=== PATIENT | male | born 1955 | race Caucasian/White ===

== ENCOUNTER 2019-10-30 16:40 | Inpatient (IN) | payer MEDICAID ==
[~2019-10-30] VITALS: Ht 175.3 cm; Wt 55.0 kg
[~2019-10-30 16:40] MED LIST: LIDOcaine 1% 30ml preserv. free vial ONE
[2019-10-30 19:42] LABS: BASOPHILS # (AUTO) 0.1 X10'3 (0-0.2); EOSINOPHILS % (AUTO) 0.1 % (0-6); HEMATOCRIT 33.7 % (42.0-52.0); HEMOGLOBIN 11.1 g/dl (14.0-17.9); LYMPHOCYTES # (AUTO) 1.1 X10'3 (1.1-4.8); LYMPHOCYTES % (AUTO) 12.7 % (21-51); MEAN CORPUSCULAR HEMOGLOBIN 27.4 PG (27.0-31.0); MEAN CORPUSCULAR HGB CONC 32.9 g/dL (33.0-36.5); MEAN CORPUSCULAR VOLUME 83.3 FL (78-98); MEAN PLATELET VOLUME 7.3 FL (7.4-10.4); MONOCYTES # (AUTO) 1.9 X10'3 (0-0.9); MONOCYTES % (AUTO) 21.9 % (2-12); NEUTROPHILS # (AUTO) 5.5 X10'3 (1.8-7.7); NEUTROPHILS % (AUTO) 64.3 % (42-75); PLATELET COUNT 465 X10'3 (140-440); RED BLOOD COUNT 4.05 X10'6 (4.70-6.10); RED CELL DISTRIBUTION WIDTH 17.4 % (11.5-14.5); WHITE BLOOD COUNT 8.6 X10'3 (4.5-11.0)
[2019-10-30 19:53] LABS: ALANINE AMINOTRANSFERASE 22 U/L (12-78); ALBUMIN 2.8 G/DL (3.4-5.0); ALBUMIN/GLOBULIN RATIO 0.5 (1.1-1.5); ALKALINE PHOSPHATASE 111 IU/L (46-116); ANION GAP 8 (8-16); ASPARTATE AMINO TRANSFERASE 28 U/L (10-37); BILIRUBIN,TOTAL 0.2 MG/DL (0.1-1.0); BLOOD UREA NITROGEN 21 MG/DL (7-18); BUN/CREATININE RATIO 20.4 (5.4-32.0); CALCIUM 9.5 MG/DL (8.5-10.1); CHLORIDE 98 MMOL/L (99-107); CREATININE 1.03 MG/DL (0.60-1.10); GLUCOSE 88 MG/DL (70-104); POTASSIUM 4.6 MMOL/L (3.5-5.1); SODIUM 136 MMOL/L (135-145); TOTAL CARBON DIOXIDE 29.9 MMOL/L (24-32); TOTAL PROTEIN 8.4 G/DL (6.4-8.2); eGFR 73 ML/MIN
[2019-10-30 20:44] LABS: TOTAL CELLS COUNTED 100
[2019-10-30 20:45] LABS: GIANT PLATELET FEW; PLATELET ESTIMATE INCREASED
[2019-10-30] MEDS ORDERED: normal saline 1000ML IV soln IVB ONE (21:15)
[2019-10-30 21:27] LABS: PARTIAL THROMBOPLASTIN TIME 29 SECONDS (22-32)
[2019-10-30 21:36] LABS: MAGNESIUM 1.7 MG/DL (1.5-2.4); TROPONIN I 0.13 NG/ML (0.0-0.05)
[2019-10-30] MEDS ORDERED: HYDROcodone/acetaminophen 10/325mg tab PO ONE (21:40)
[2019-10-30] MEDS ORDERED: CARV3.122 PO (21:51)
[2019-10-30] MEDS ORDERED: SPIR25TA PO (21:51)
[2019-10-30] MEDS ORDERED: FURO40TA4 PO (21:51)
[2019-10-30] MEDS ORDERED: LISI10TA PO (21:51)
[2019-10-30] MEDS ORDERED: magnesium Cl slow-release 64mg tablet PO PRN (22:40)
[2019-10-30] MEDS ORDERED: ondansetron/PF 4mg/2ml inj IV PRN (22:40)
[2019-10-30] MEDS ORDERED: magnesium hydroxide 30ml (MOM) UD suspension PO PRN (22:40)
[2019-10-30] MEDS ORDERED: potassium Cl 20 mEq SR tablet PO PRN ×2 (22:40)
[2019-10-30] MEDS ORDERED: mag hydrox/Alum hydrox/simeth 30ml oral suspension PO PRN (22:40)
[2019-10-31] VITALS (10 sets, daily range): BP systolic 91–153; BP diastolic 57–77
[2019-10-31] MEDS: morphine 2 MG/ML inj. syringe IV PRN ×3 (01:15→20:14)
--- NOTE | 2019-10-31 01:50 | NUR ---
Patient in room [facility] 350. I have received report from Bishnu JOHANSEN in the ER and had the opportunity to ask questions and assume patient care. Pt arrived on the unit via gurney with his personal belongings. NS bolus was running and pt was on tele. Chest tube was clamped off for transfer. VSS and pt had no signs of distress. Verified order for -20mmHg and low continuous suction with Dr Proctor, connected pt to suction accordingly, no air leak. Will continue to monitor.
[2019-10-31 02:02] LABS: HEMOGLOBIN 9.4 g/dl (14.0-17.9); LYMPHOCYTES # (AUTO) 1.4 X10'3 (1.1-4.8); LYMPHOCYTES % (AUTO) 23.9 % (21-51)
[2019-10-31 02:03] LABS: BASOPHILS % (AUTO) 0.3 % (0-1); EOSINOPHILS % (AUTO) 0.1 % (0-6); HEMATOCRIT 27.9 % (42.0-52.0); MEAN CORPUSCULAR HGB CONC 33.6 g/dL (33.0-36.5); MEAN CORPUSCULAR VOLUME 83.4 FL (78-98); MEAN PLATELET VOLUME 7.2 FL (7.4-10.4); MONOCYTES # (AUTO) 1.3 X10'3 (0-0.9); MONOCYTES % (AUTO) 22.7 % (2-12); PLATELET COUNT 349 X10'3 (140-440); RED BLOOD COUNT 3.34 X10'6 (4.70-6.10); RED CELL DISTRIBUTION WIDTH 17.3 % (11.5-14.5); WHITE BLOOD COUNT 5.7 X10'3 (4.5-11.0)
[2019-10-31 02:17] LABS: ALANINE AMINOTRANSFERASE 21 U/L (12-78); ALBUMIN 2.1 G/DL (3.4-5.0); ALBUMIN/GLOBULIN RATIO 0.5 (1.1-1.5); ALKALINE PHOSPHATASE 87 IU/L (46-116); ANION GAP 6 (8-16); BILIRUBIN,TOTAL 0.2 MG/DL (0.1-1.0); BLOOD UREA NITROGEN 21 MG/DL (7-18); BUN/CREATININE RATIO 24.1 (5.4-32.0); CALCIUM 8.1 MG/DL (8.5-10.1); CHLORIDE 105 MMOL/L (99-107); CREATININE 0.87 MG/DL (0.60-1.10); GLUCOSE 91 MG/DL (70-104); SODIUM 139 MMOL/L (135-145); TOTAL CARBON DIOXIDE 28.2 MMOL/L (24-32); TOTAL PROTEIN 6.7 G/DL (6.4-8.2); eGFR 89 ML/MIN
[2019-10-31 02:18] LABS: ASPARTATE AMINO TRANSFERASE 33 U/L (10-37); POTASSIUM 4.4 MMOL/L (3.5-5.1)
[2019-10-31 02:22] LABS: MAGNESIUM 1.5 MG/DL (1.5-2.4)
[2019-10-31 02:44] LABS: TOTAL CELLS COUNTED 100
[2019-10-31 02:46] LABS: PLATELET ESTIMATE NORMAL
--- NOTE | 2019-10-31 06:15 | NUR ---
Problems reprioritized. Patient report given, questions answered & plan of care reviewed with Shannan JOHANSEN.
[2019-10-31] MEDS: spironolactone 25 MG tablet PO SCH (08:00)
[2019-10-31] MEDS: K and/or MAG REPLACEMENT MC SCH ×2 (08:00→20:00)
[2019-10-31] MEDS: lisinopril 10 MG tablet PO SCH (08:00)
[2019-10-31] MEDS: furosemide 40mg tablet PO SCH (08:00)
[2019-10-31] MEDS: carVEDilol 3.125mg tablet PO SCH ×2 (08:00→20:13)
--- NOTE | 2019-10-31 08:29 | NUR ---
Noah barker notified this RN immediately after AM CXR that R chest tube was most likely pulled out and that the hole of the chest tube hole is "up against the pleural wall" and "may not be effective" at this time. MD Rico notified. She stated to notify IR Benito Ch about this so he could take a look. Called IR, spoke with Lisa, she said she would pass the message on to Benito, as he is not available at this time.
[2019-10-31] MEDS ORDERED: pneumococcal 23-VAL P-sac vacc 25 mcg/0.5ml vial IMVAC ONE (10:00)
[2019-10-31] MEDS ORDERED: FLU VACC QS2019-20 36MOS UP/PF 60 MCG/0.5 ML SYRINGE IMVAC ONE (10:00)
[2019-10-31] MEDS ORDERED: fentaNYL/PF 50MCG/1 ML 2ML syringe ONE (11:01)
--- NOTE | 2019-10-31 12:18 | NUR ---
Pt. returned from IR procedure with 2 CT, both to wall suction -20. Report was given and RNs from IR states previous CT was in place and that nothing was changed with that CT, however a new CT was placed in RUL. Secured to body. Placed on suction. CT does have fluctuation of water on inspiration and expiration and air bubbles are present while coughing and at times at rest. This RN was told this is an expected result after a new CT has been placed to resolved a pneumothorax. Expected to resolve over time. VSS: 98.7, 124/75, 60 HR, 14 RR 98% SA02 RA. Charge made aware, and she did assess CT as well- will cont. to monitor.
--- NOTE | 2019-10-31 13:08 | NUR ---
No order for suction for 2nd CT, order to check RAHDA drain output. Called IR for clarification from Audra.
--- NOTE | 2019-10-31 18:57 | NUR ---
Gave report to [place] JOHANSEN.
--- NOTE | 2019-10-31 19:38 | NUR ---
Patient in room [facility] 350. I have received report from Shannan JOHANSEN and had the opportunity to ask questions and assume patient care.
--- NOTE | 2019-10-31 19:47 | NUR ---
Malnutrition consult: Pt reports 20-25 lb wt loss over the last month secondary to heart issues. No wt hx in EMR, pt reports UBW of 150 lbs, current stated wt is 150 lbs. 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 Pt with no edema or decrease in muscle strength. Pt appears thin however not cachectic. Pt currently does not meet criteria for malnutrition. Pt requesting to receive Ensure with meals. RD encouraged PO intake of meals and offered to provide additional food however pt declined and was adamant about receiving Ensure and requested chantelle POWELL d/w dietary. ONS to be sent pending MD approval in [employer]. Will continue to follow. Addendum: 10/31/19 at [address] Amended: Links added.
[2019-10-31] MEDS: acetaminophen 325mg tablet PO PRN (20:13)
[2019-11-01 00:13] VITALS: BP 134/81
[2019-11-01] MEDS: morphine 2 MG/ML inj. syringe IV PRN ×4 (03:38→21:51)
[2019-11-01 05:23] LABS: BASOPHILS # (AUTO) 0.1 X10'3 (0-0.2); BASOPHILS % (AUTO) 0.8 % (0-1); EOSINOPHILS % (AUTO) 0.3 % (0-6); HEMATOCRIT 33.2 % (42.0-52.0); LYMPHOCYTES # (AUTO) 1.4 X10'3 (1.1-4.8); LYMPHOCYTES % (AUTO) 20.1 % (21-51); MEAN CORPUSCULAR HEMOGLOBIN 27.4 PG (27.0-31.0); MEAN CORPUSCULAR HGB CONC 33.1 g/dL (33.0-36.5); MEAN CORPUSCULAR VOLUME 82.9 FL (78-98); MEAN PLATELET VOLUME 7.1 FL (7.4-10.4); MONOCYTES # (AUTO) 1.5 X10'3 (0-0.9); MONOCYTES % (AUTO) 21.5 % (2-12); NEUTROPHILS # (AUTO) 4.1 X10'3 (1.8-7.7); NEUTROPHILS % (AUTO) 57.3 % (42-75); PLATELET COUNT 444 X10'3 (140-440); RED CELL DISTRIBUTION WIDTH 17.3 % (11.5-14.5); WHITE BLOOD COUNT 7.1 X10'3 (4.5-11.0)
[2019-11-01 05:43] LABS: ALANINE AMINOTRANSFERASE 22 U/L (12-78); ALBUMIN 2.3 G/DL (3.4-5.0); ALBUMIN/GLOBULIN RATIO 0.5 (1.1-1.5); ALKALINE PHOSPHATASE 94 IU/L (46-116); ANION GAP 5 (8-16); ASPARTATE AMINO TRANSFERASE 29 U/L (10-37); BILIRUBIN,TOTAL 0.2 MG/DL (0.1-1.0); BLOOD UREA NITROGEN 14 MG/DL (7-18); BUN/CREATININE RATIO 20.3 (5.4-32.0); CALCIUM 8.7 MG/DL (8.5-10.1); CHLORIDE 103 MMOL/L (99-107); CREATININE 0.69 MG/DL (0.60-1.10); GLUCOSE 87 MG/DL (70-104); MAGNESIUM 1.6 MG/DL (1.5-2.4); POTASSIUM 4.6 MMOL/L (3.5-5.1); SODIUM 136 MMOL/L (135-145); TOTAL CARBON DIOXIDE 28.5 MMOL/L (24-32); TOTAL PROTEIN 7.3 G/DL (6.4-8.2); eGFR > 90 ML/MIN
--- NOTE | 2019-11-01 06:20 | NUR ---
Patient in room [facility]. I have received report from [place] JOHANSEN and had the opportunity to ask questions and assume patient care.
--- NOTE | 2019-11-01 06:50 | NUR ---
Problems reprioritized. Patient report given, questions answered & plan of care reviewed with Danni JOHANSEN.
[2019-11-01 07:38] LABS: TOTAL CELLS COUNTED 100
[2019-11-01 07:39] LABS: PLATELET ESTIMATE NORMAL
[2019-11-01 07:45] VITALS: BP 118/81
[2019-11-01 07:45] LABS: ANISOCYTOSIS 1+; SCHISTOCYTES FEW
[2019-11-01] MEDS: K and/or MAG REPLACEMENT MC SCH ×2 (07:54→20:00)
[2019-11-01] MEDS: spironolactone 25 MG tablet PO SCH (08:02)
[2019-11-01] MEDS: lisinopril 10 MG tablet PO SCH (08:03)
[2019-11-01] MEDS: carVEDilol 3.125mg tablet PO SCH ×2 (08:03→20:00)
[2019-11-01] MEDS: furosemide 40mg tablet PO SCH (08:03)
--- NOTE | 2019-11-01 11:00 | NUR ---
AUBREY Reynoso in to see patient, examined chest tubes, ordered chest xray.
--- NOTE | 2019-11-01 11:33 | NUR ---
Dr. Rico paged regarding BP 90/59. Awaiting call back.
[2019-11-01 11:36] VITALS: BP 90/59
--- NOTE | 2019-11-01 12:20 | NUR ---
Problems reprioritized. Patient report given, questions answered & plan of care reviewed with Joel.
[2019-11-01] MEDS ORDERED: normal saline 1000ml 1,000 ML IV ONE (12:45)
[2019-11-01 13:00] VITALS: BP 104/59
--- NOTE | 2019-11-01 13:03 | NUR ---
Student documentation: I have reviewed all interventions, assessments performed and documented by Evelia MARTIN
--- NOTE | 2019-11-01 13:25 | NUR ---
Informed Dr. Rico of BP 89/52 with map of 61 and chest xray results. MD ordered 250ml bolus and stated she will adjust BP meds.
--- NOTE | 2019-11-01 18:58 | NUR ---
Problems reprioritized. Patient report given, questions answered & plan of care reviewed with Marce JOHANSEN.
[2019-11-01 20:00] VITALS: BP 97/58
[2019-11-02] VITALS: BP 96/57
[2019-11-02 06:09] LABS: BASOPHILS % (AUTO) 0.6 % (0-1); EOSINOPHILS % (AUTO) 0.3 % (0-6); HEMATOCRIT 32.7 % (42.0-52.0); HEMOGLOBIN 10.6 g/dl (14.0-17.9); LYMPHOCYTES # (AUTO) 1.9 X10'3 (1.1-4.8); LYMPHOCYTES % (AUTO) 33.4 % (21-51); MEAN CORPUSCULAR HEMOGLOBIN 26.9 PG (27.0-31.0); MEAN CORPUSCULAR HGB CONC 32.5 g/dL (33.0-36.5); MEAN CORPUSCULAR VOLUME 82.7 FL (78-98); MEAN PLATELET VOLUME 7.4 FL (7.4-10.4); NEUTROPHILS # (AUTO) 2.8 X10'3 (1.8-7.7); NEUTROPHILS % (AUTO) 47.7 % (42-75); PLATELET COUNT 444 X10'3 (140-440); RED BLOOD COUNT 3.95 X10'6 (4.70-6.10); RED CELL DISTRIBUTION WIDTH 17.1 % (11.5-14.5); WHITE BLOOD COUNT 5.8 X10'3 (4.5-11.0)
[2019-11-02 06:24] LABS: ALANINE AMINOTRANSFERASE 23 U/L (12-78); ALBUMIN 2.3 G/DL (3.4-5.0); ALBUMIN/GLOBULIN RATIO 0.5 (1.1-1.5); ALKALINE PHOSPHATASE 99 IU/L (46-116); ANION GAP 8 (8-16); ASPARTATE AMINO TRANSFERASE 29 U/L (10-37); BILIRUBIN,TOTAL 0.1 MG/DL (0.1-1.0); BLOOD UREA NITROGEN 18 MG/DL (7-18); BUN/CREATININE RATIO 23.7 (5.4-32.0); CALCIUM 8.8 MG/DL (8.5-10.1); CHLORIDE 101 MMOL/L (99-107); CREATININE 0.76 MG/DL (0.60-1.10); GLUCOSE 103 MG/DL (70-104); MAGNESIUM 1.7 MG/DL (1.5-2.4); POTASSIUM 3.9 MMOL/L (3.5-5.1); SODIUM 137 MMOL/L (135-145); TOTAL CARBON DIOXIDE 28.1 MMOL/L (24-32); TOTAL PROTEIN 7.3 G/DL (6.4-8.2); eGFR > 90 ML/MIN
--- NOTE | 2019-11-02 06:42 | NUR ---
Problems reprioritized. Patient report given, questions answered & plan of care reviewed with Concetta JOHANSEN.
[2019-11-02 08:00] VITALS: BP 107/62
[2019-11-02] MEDS: furosemide 40mg tablet PO SCH (08:00)
[2019-11-02] MEDS: K and/or MAG REPLACEMENT MC SCH ×2 (08:00→20:00)
[2019-11-02] MEDS: carVEDilol 3.125mg tablet PO SCH ×2 (08:00→20:15)
[2019-11-02] MEDS: lactose-reduced food (Ensure High Protein) 237ml bottle PO SCH ×3 (08:20→18:00)
[2019-11-02 09:15] VITALS: BP 98/65
[2019-11-02 11:06] VITALS: BP 98/65
--- NOTE | 2019-11-02 18:01 | NUR ---
Patient report given, questions answered & plan of care reviewed with ELENO Mcpherson.
--- NOTE | 2019-11-02 18:16 | NUR ---
Problems reprioritized. Patient report given, questions answered & plan of care reviewed with ELENO Zheng.
[2019-11-02 20:00] VITALS: BP 120/78
[2019-11-02] MEDS: morphine 2 MG/ML inj. syringe IV PRN (20:14)
[2019-11-02] MEDS: lisinopril 5mg tablet PO SCH ×2 (20:14→21:00)
[2019-11-03] VITALS: BP 102/67
[2019-11-03 05:30] LABS: BASOPHILS % (AUTO) 0.6 % (0-1); EOSINOPHILS % (AUTO) 0.6 % (0-6); HEMATOCRIT 32.1 % (42.0-52.0); HEMOGLOBIN 10.6 g/dl (14.0-17.9); LYMPHOCYTES # (AUTO) 1.8 X10'3 (1.1-4.8); LYMPHOCYTES % (AUTO) 33.7 % (21-51); MEAN CORPUSCULAR HEMOGLOBIN 27.2 PG (27.0-31.0); MEAN CORPUSCULAR VOLUME 82.2 FL (78-98); MEAN PLATELET VOLUME 6.9 FL (7.4-10.4); MONOCYTES # (AUTO) 0.9 X10'3 (0-0.9); MONOCYTES % (AUTO) 17.2 % (2-12); NEUTROPHILS # (AUTO) 2.6 X10'3 (1.8-7.7); NEUTROPHILS % (AUTO) 47.9 % (42-75); PLATELET COUNT 427 X10'3 (140-440); WHITE BLOOD COUNT 5.4 X10'3 (4.5-11.0)
[2019-11-03 05:53] LABS: ALANINE AMINOTRANSFERASE 21 U/L (12-78); ALBUMIN 2.3 G/DL (3.4-5.0); ALBUMIN/GLOBULIN RATIO 0.5 (1.1-1.5); ALKALINE PHOSPHATASE 92 IU/L (46-116); ANION GAP 5 (8-16); ASPARTATE AMINO TRANSFERASE 28 U/L (10-37); BILIRUBIN,TOTAL 0.2 MG/DL (0.1-1.0); BLOOD UREA NITROGEN 17 MG/DL (7-18); CALCIUM 8.9 MG/DL (8.5-10.1); CHLORIDE 102 MMOL/L (99-107); CREATININE 0.63 MG/DL (0.60-1.10); GLUCOSE 87 MG/DL (70-104); MAGNESIUM 1.8 MG/DL (1.5-2.4); POTASSIUM 4.4 MMOL/L (3.5-5.1); SODIUM 137 MMOL/L (135-145); TOTAL CARBON DIOXIDE 29.9 MMOL/L (24-32); TOTAL PROTEIN 7.2 G/DL (6.4-8.2); eGFR > 90 ML/MIN
--- NOTE | 2019-11-03 06:30 | NUR ---
Problems reprioritized. Patient report given, questions answered & plan of care reviewed with Alden JOHANSEN.
--- NOTE | 2019-11-03 06:31 | NUR ---
Problems reprioritized. Patient report given, questions answered & plan of care reviewed with Alden JOHANSEN. Addendum: 11/03/19 at 0701 by Ab Murrieta RN [place] nurse
[2019-11-03 07:36] VITALS: BP 99/61
[2019-11-03] MEDS: K and/or MAG REPLACEMENT MC SCH ×2 (07:37→19:40)
[2019-11-03] MEDS: furosemide 40mg tablet PO SCH (07:37)
[2019-11-03] MEDS: carVEDilol 3.125mg tablet PO SCH ×2 (07:37→20:31)
[2019-11-03] MEDS: lactose-reduced food (Ensure High Protein) 237ml bottle PO SCH ×3 (08:46→18:06)
[2019-11-03 11:00] VITALS: BP 100/58
--- NOTE | 2019-11-03 11:10 | NUR ---
MARÍA BURGOS clamped Right lower lobe chest tube. Addendum: 11/03/19 at 1111 by Vida Phoenix RN Amended: Links added.
--- NOTE | 2019-11-03 11:44 | NUR ---
Initial: Pt admit with hydropneumothorax. Pt recently treated for empyema at [facility], currently with chest tubes in place per MD notes. Pt documented with 18-45 mL output from chest tubes over the last two days. Pt on a regular diet with fluctuating PO intake, initially 100% then down to 25-50%, however back up to 100% PO intake at breakfast this morning. Pt receiving Ensure High Protein TID documented with 100% PO intake. Overall pt meeting nutrient needs at this time. LBM 11/01. No further nutrition intervention warranted at this time. Will continue to follow. Recommendations: 1) Continue regular diet 2) Ensure High Protein TID 3) Bowel care PRN 4) Wt per rx Addendum: 11/03/19 at [address] Amended: Links added.
[2019-11-03] MEDS: morphine 2 MG/ML inj. syringe IV PRN ×3 (13:10→22:31)
--- NOTE | 2019-11-03 18:47 | NUR ---
Problems reprioritized. Patient report given, questions answered & plan of care reviewed with ELENO Landaverde.
[2019-11-03 19:00] VITALS: BP 103/63
[2019-11-03] MEDS: lisinopril 5mg tablet PO SCH (20:31)
[2019-11-03 20:33] VITALS: BP 144/70
[2019-11-04] VITALS: BP 108/54
[2019-11-04 05:21] LABS: BASOPHILS % (AUTO) 0.5 % (0-1); EOSINOPHILS % (AUTO) 0.7 % (0-6); HEMATOCRIT 34.3 % (42.0-52.0); HEMOGLOBIN 11.3 g/dl (14.0-17.9); LYMPHOCYTES # (AUTO) 2.1 X10'3 (1.1-4.8); LYMPHOCYTES % (AUTO) 29.6 % (21-51); MEAN CORPUSCULAR VOLUME 81.7 FL (78-98); MEAN PLATELET VOLUME 7.2 FL (7.4-10.4); MONOCYTES % (AUTO) 15.1 % (2-12); NEUTROPHILS # (AUTO) 3.8 X10'3 (1.8-7.7); NEUTROPHILS % (AUTO) 54.1 % (42-75); PLATELET COUNT 504 X10'3 (140-440); RED BLOOD COUNT 4.19 X10'6 (4.70-6.10); WHITE BLOOD COUNT 6.9 X10'3 (4.5-11.0)
[2019-11-04 05:45] LABS: ALANINE AMINOTRANSFERASE 27 U/L (12-78); ALBUMIN 2.6 G/DL (3.4-5.0); ALBUMIN/GLOBULIN RATIO 0.5 (1.1-1.5); ALKALINE PHOSPHATASE 109 IU/L (46-116); ANION GAP 5 (8-16); ASPARTATE AMINO TRANSFERASE 30 U/L (10-37); BILIRUBIN,TOTAL 0.2 MG/DL (0.1-1.0); BLOOD UREA NITROGEN 26 MG/DL (7-18); BUN/CREATININE RATIO 29.2 (5.4-32.0); CALCIUM 9.2 MG/DL (8.5-10.1); CHLORIDE 101 MMOL/L (99-107); CREATININE 0.89 MG/DL (0.60-1.10); GLUCOSE 116 MG/DL (70-104); MAGNESIUM 1.9 MG/DL (1.5-2.4); POTASSIUM 4.3 MMOL/L (3.5-5.1); SODIUM 138 MMOL/L (135-145); TOTAL CARBON DIOXIDE 32.2 MMOL/L (24-32); eGFR 87 ML/MIN
--- NOTE | 2019-11-04 06:05 | NUR ---
Patient in room [facility] 350. I have received report from Saima Epps RN and had the opportunity to ask questions and assume patient care.
--- NOTE | 2019-11-04 06:44 | NUR ---
Problems reprioritized. Patient report given, questions answered & plan of care reviewed with ELENO Eden.
[2019-11-04] MEDS: K and/or MAG REPLACEMENT MC SCH ×2 (07:44→20:00)
[2019-11-04 08:00] VITALS: BP 112/58
[2019-11-04] MEDS: lactose-reduced food (Ensure High Protein) 237ml bottle PO SCH ×3 (08:00→18:00)
--- NOTE | 2019-11-04 11:14 | NUR ---
Student Medication Administration: For this medication-pass time frame, all medication were reviewed, dispensed, administered and documented per hospital policy by Yesenia Pichardo, practical nursing instructor.
--- NOTE | 2019-11-04 11:14 | NUR ---
Student documentation: I have reviewed and agree with all interventions, assessments performed and documented by Yesenia Pichardo, clinical nursing coordinator.
[2019-11-04] MEDS: furosemide 40mg tablet PO SCH (11:24)
[2019-11-04] MEDS: carVEDilol 3.125mg tablet PO SCH ×2 (11:24→22:17)
[2019-11-04 12:00] VITALS: BP 120/64
[2019-11-04] MEDS ORDERED: iohexol 300mg/ml 100ml inj. ONE (15:32)
[2019-11-04] MEDS: morphine 2 MG/ML inj. syringe IV PRN ×2 (16:32→22:34)
[2019-11-04 18:00] VITALS: BP_SYST 103; BP_SYST 106; BP_DIAS 61; BP_DIAS 65
--- NOTE | 2019-11-04 18:00 | NUR ---
Patient in room [facility] 350. I have received report from Maritza JOHANSEN and had the opportunity to ask questions and assume patient care. Addendum: 11/05/19 at 0014 by Cindy Gross RN Amended: Links added.
--- NOTE | 2019-11-04 19:25 | NUR ---
Problems reprioritized. Patient report given, questions answered & plan of care reviewed with ELENO White.
[2019-11-04] MEDS: lisinopril 5mg tablet PO SCH (22:17)
[2019-11-05] VITALS: BP 106/65
--- NOTE | 2019-11-05 05:20 | NUR ---
Chest tubes with no new output. No bubbling in the chambers noted with continous wall suctioning in place. No air leak noted this shift. Chest tube insertion site with dressing CDI. Pt. with no c/o SOB this shift. Addendum: 11/05/19 at 0748 by Cindy Gross RN Amended: Links added.
--- NOTE | 2019-11-05 06:00 | NUR ---
Problems reprioritized. Patient report given Karey, questions answered & plan of care reviewed with . Addendum: 11/05/19 at 0805 by Cindy Gross RN Amended: Links added.
[2019-11-05 06:30] VITALS: BP 112/66
--- NOTE | 2019-11-05 06:30 | NUR ---
Patient in room [facility] 350. I have received report from ELENO White and had the opportunity to ask questions and assume patient care.
[2019-11-05] MEDS: K and/or MAG REPLACEMENT MC SCH ×2 (07:01→20:00)
[2019-11-05] MEDS: lactose-reduced food (Ensure High Protein) 237ml bottle PO SCH ×3 (08:00→18:01)
[2019-11-05] MEDS: carVEDilol 3.125mg tablet PO SCH ×2 (08:08→21:05)
[2019-11-05] MEDS: furosemide 40mg tablet PO SCH (08:08)
[2019-11-05 11:00] VITALS: BP 96/56
[2019-11-05] MEDS: morphine 2 MG/ML inj. syringe IV PRN (17:41)
--- NOTE | 2019-11-05 18:20 | NUR ---
Patient in room JUD[facility] 350A. I have received report from Karey JOHANSEN and had the opportunity to ask questions and assume patient care.
--- NOTE | 2019-11-05 18:20 | NUR ---
Problems reprioritized. Patient report given, questions answered & plan of care reviewed with ELENO Lomeli.
[2019-11-05 21:00] VITALS: BP 109/57
[2019-11-05] MEDS: lisinopril 5mg tablet PO SCH (21:05)
[2019-11-06] VITALS (14 sets, daily range): BP systolic 96–114; BP diastolic 47–66
[2019-11-06] MEDS: morphine 2 MG/ML inj. syringe IV PRN ×2 (00:40→19:39)
[2019-11-06 05:13] LABS: BASOPHILS % (AUTO) 0.6 % (0-1); EOSINOPHILS # (AUTO) 0.3 X10'3 (0-0.9); EOSINOPHILS % (AUTO) 3.6 % (0-6); HEMATOCRIT 32.9 % (42.0-52.0); HEMOGLOBIN 10.7 g/dl (14.0-17.9); LYMPHOCYTES # (AUTO) 2.3 X10'3 (1.1-4.8); LYMPHOCYTES % (AUTO) 30.3 % (21-51); MEAN CORPUSCULAR HEMOGLOBIN 26.5 PG (27.0-31.0); MEAN CORPUSCULAR HGB CONC 32.5 g/dL (33.0-36.5); MEAN CORPUSCULAR VOLUME 81.5 FL (78-98); MEAN PLATELET VOLUME 7.2 FL (7.4-10.4); MONOCYTES % (AUTO) 13.2 % (2-12); NEUTROPHILS % (AUTO) 52.3 % (42-75); PLATELET COUNT 499 X10'3 (140-440); RED BLOOD COUNT 4.04 X10'6 (4.70-6.10); RED CELL DISTRIBUTION WIDTH 17.1 % (11.5-14.5); WHITE BLOOD COUNT 7.6 X10'3 (4.5-11.0)
[2019-11-06 05:21] LABS: ALANINE AMINOTRANSFERASE 29 U/L (12-78); ALBUMIN 2.4 G/DL (3.4-5.0); ALBUMIN/GLOBULIN RATIO 0.5 (1.1-1.5); ALKALINE PHOSPHATASE 105 IU/L (46-116); ANION GAP 3 (8-16); ASPARTATE AMINO TRANSFERASE 31 U/L (10-37); BILIRUBIN,TOTAL 0.2 MG/DL (0.1-1.0); BLOOD UREA NITROGEN 23 MG/DL (7-18); BUN/CREATININE RATIO 30.7 (5.4-32.0); CHLORIDE 103 MMOL/L (99-107); CREATININE 0.75 MG/DL (0.60-1.10); GLUCOSE 85 MG/DL (70-104); POTASSIUM 4.9 MMOL/L (3.5-5.1); SODIUM 138 MMOL/L (135-145); TOTAL CARBON DIOXIDE 32.4 MMOL/L (24-32); TOTAL PROTEIN 7.4 G/DL (6.4-8.2); eGFR > 90 ML/MIN
--- NOTE | 2019-11-06 06:49 | NUR ---
Problems reprioritized. Patient report given, questions answered & plan of care reviewed with Suzette JOHANSEN.
--- NOTE | 2019-11-06 07:10 | NUR ---
Patient in room [facility] 350. I have received report from Yani JOHANSEN and had the opportunity to ask questions and assume patient care.
[2019-11-06] MEDS: furosemide 40mg tablet PO SCH (08:00)
[2019-11-06] MEDS: lactose-reduced food (Ensure High Protein) 237ml bottle PO SCH ×3 (08:00→18:00)
[2019-11-06] MEDS: K and/or MAG REPLACEMENT MC SCH ×2 (08:00→20:00)
[2019-11-06] MEDS: carVEDilol 3.125mg tablet PO SCH ×2 (09:05→19:38)
[2019-11-06 09:45] LABS: PARTIAL THROMBOPLASTIN TIME 28 SECONDS (22-32)
[2019-11-06] MEDS ORDERED: nitroGLYCERIN 0.4mg SUBLingual tab SL PRN (10:25)
[2019-11-06] MEDS ORDERED: regadenoson 0.4mg/5ml syringe IV ONE (10:25)
[2019-11-06] MEDS ORDERED: metoprolol tartrate 1mg/ml inj IV PRN (10:25)
[2019-11-06] MEDS ORDERED: aminophylline 250mg/10ml inj. IV PRN (10:25)
--- NOTE | 2019-11-06 10:27 | NUR ---
Per plant electrical engineer, pt will be going for a Tanika Scan today, surgery will be tomorrow. Pt to remain NPO at this time. Will continue to monitor.
--- NOTE | 2019-11-06 12:42 | NUR ---
1200 called Luis Angio re: significant airleak noted to Chest Tube #1 (RLL) after pt ambulated with PT. sales agent notified. 1215 Luis here to assess Chest tube. Dressing reinforced but chest tube continues to show airleak. Will continue to monitor.
--- NOTE | 2019-11-06 13:08 | NUR ---
phoned Dr Gandhi, advised after up with PT significant airleak to chest tube #1, Right Lower Lung, pt with no s/sx distress, evaluated by Luis Angio and CT sites redressed. stated to keep Chest Tubes to suction. Will continue to monitor.
--- NOTE | 2019-11-06 13:53 | NUR ---
PAGER ID: [phone] MESSAGE: Suzette Med/Surg, [id number]; re:Jason Joaquin 350A, pt's records from [facility] received and are in the pt's chart.
--- NOTE | 2019-11-06 14:53 | NUR ---
1430 Pt down for Tanika Scan via w/c, accompanied by RN, with Chest Tubes x 2 to Suction. Pt's personal belongings left in room.
--- NOTE | 2019-11-06 18:30 | NUR ---
Problems reprioritized. Patient report given, questions answered & plan of care reviewed with Yani JOHANSEN.
--- NOTE | 2019-11-06 18:31 | NUR ---
Patient in room [facility] 350. I have received report from Suzette JOHANSEN and had the opportunity to ask questions and assume patient care.
[2019-11-06] MEDS: lisinopril 5mg tablet PO SCH (20:59)
[2019-11-07] VITALS (14 sets, daily range): BP systolic 95–167; BP diastolic 49–78
[2019-11-07] MEDS: morphine 2 MG/ML inj. syringe IV PRN (00:24)
[2019-11-07 05:32] LABS: BASOPHILS % (AUTO) 0.6 % (0-1); EOSINOPHILS # (AUTO) 0.3 X10'3 (0-0.9); EOSINOPHILS % (AUTO) 3.5 % (0-6); HEMATOCRIT 35.3 % (42.0-52.0); HEMOGLOBIN 11.4 g/dl (14.0-17.9); LYMPHOCYTES # (AUTO) 2.5 X10'3 (1.1-4.8); LYMPHOCYTES % (AUTO) 29.5 % (21-51); MEAN CORPUSCULAR HEMOGLOBIN 26.4 PG (27.0-31.0); MEAN CORPUSCULAR HGB CONC 32.3 g/dL (33.0-36.5); MEAN CORPUSCULAR VOLUME 81.6 FL (78-98); MEAN PLATELET VOLUME 7.5 FL (7.4-10.4); MONOCYTES # (AUTO) 1.1 X10'3 (0-0.9); MONOCYTES % (AUTO) 13.7 % (2-12); NEUTROPHILS # (AUTO) 4.4 X10'3 (1.8-7.7); NEUTROPHILS % (AUTO) 52.7 % (42-75); PLATELET COUNT 524 X10'3 (140-440); RED BLOOD COUNT 4.33 X10'6 (4.70-6.10); RED CELL DISTRIBUTION WIDTH 17.1 % (11.5-14.5); WHITE BLOOD COUNT 8.4 X10'3 (4.5-11.0)
[2019-11-07 05:43] LABS: ALANINE AMINOTRANSFERASE 32 U/L (12-78); ALBUMIN 2.6 G/DL (3.4-5.0); ALBUMIN/GLOBULIN RATIO 0.5 (1.1-1.5); ALKALINE PHOSPHATASE 112 IU/L (46-116); ANION GAP 2 (8-16); ASPARTATE AMINO TRANSFERASE 31 U/L (10-37); BILIRUBIN,TOTAL 0.2 MG/DL (0.1-1.0); BLOOD UREA NITROGEN 23 MG/DL (7-18); BUN/CREATININE RATIO 34.3 (5.4-32.0); CALCIUM 9.2 MG/DL (8.5-10.1); CHLORIDE 103 MMOL/L (99-107); CREATININE 0.67 MG/DL (0.60-1.10); GLUCOSE 77 MG/DL (70-104); POTASSIUM 4.6 MMOL/L (3.5-5.1); SODIUM 138 MMOL/L (135-145); TOTAL PROTEIN 7.7 G/DL (6.4-8.2); eGFR > 90 ML/MIN
--- NOTE | 2019-11-07 06:38 | NUR ---
Problems reprioritized. Patient report given, questions answered & plan of care reviewed with Concetta JOHANSEN.
[2019-11-07] MEDS: furosemide 40mg tablet PO SCH (08:00)
[2019-11-07] MEDS: carVEDilol 3.125mg tablet PO SCH ×2 (08:00→19:46)
[2019-11-07] MEDS: K and/or MAG REPLACEMENT MC SCH ×2 (08:00→19:47)
[2019-11-07] MEDS: lactose-reduced food (Ensure High Protein) 237ml bottle PO SCH ×3 (08:00→18:00)
[2019-11-07] MEDS: ringers solution, lacted 1,000 ML IV SCH ×2 (12:56→23:39)
[2019-11-07] MEDS ORDERED: ringers solution, lacted 1,000 ML IV ONE (13:07)
[2019-11-07] MEDS ORDERED: ringers solution, lacted 1,000 ML IV SCH (13:11)
[2019-11-07] MEDS ORDERED: ondansetron/PF 4mg/2ml inj IV PRN ×2 (13:15→17:10)
[2019-11-07] MEDS ORDERED: morphine 2 MG/ML inj. syringe IV PRN (13:15)
[2019-11-07] MEDS ORDERED: proCHLORperazine 10 MG/2 ml inj IV PRN (13:15)
[2019-11-07] MEDS ORDERED: meperidine/PF 25mg/ml syringe IV PRN ×3 (13:15)
[2019-11-07] MEDS ORDERED: morphine 4 MG/ML inj SYRINge IV PRN ×3 (13:15→17:10)
--- NOTE | 2019-11-07 13:56 | NUR ---
report called to ELENO Tsang. Patient being picked up for OR now.
[2019-11-07] MEDS ORDERED: clindamycin phosphate 150mg/ml inj. ONE (14:21)
[2019-11-07] MEDS ORDERED: gentamicin 40 MG/1 ML inj ONE (14:21)
[2019-11-07] MEDS ORDERED: ceFAZolin 1000mg inj ONE ×3 (14:21→15:46)
[2019-11-07] MEDS ORDERED: MIDAZolam 5mg/5ml vial ONE (14:27)
[2019-11-07] MEDS ORDERED: fentaNYL /PF 50mcg/ml 5ml ampule ONE (14:27)
[2019-11-07] MEDS ORDERED: propofol inj 20 ML IV ONE (14:28)
[2019-11-07] MEDS ORDERED: sevoflurane 250ml liquid IH ONE (14:36)
[2019-11-07] MEDS ORDERED: NORepinephrine 1 mg/ml inj IV ONE (15:07)
[2019-11-07] MEDS ORDERED: ePHEDrine 50MG/ML INJ. ONE (15:47)
[2019-11-07] MEDS ORDERED: rocuronium 10mg/ml inj IV ONE (15:47)
[2019-11-07 16:26] LABS: ABG BASE EXCESS 2.5 mmol/L (-2.0-3.0); ABG HCO3 28.2 mmol/L (22.0-26.0); ABG OXYGEN SATURATION 98.9 % (95-98); ABG PCO2 (T) 48.8 mmHg (35.0-45.0); ABG PO2 (T) 154.6 mmHg (83-108); FCOHb 0.3 % (0.5-1.5); FMetHb 0.3 % (0.3-1.12); FO2Hb 98.3 % (94-100); TOTAL HEMOGLOBIN 11.5 G/dl (14.0-17.9)
[2019-11-07] MEDS ORDERED: BUPIVAcaine/PF 2.5 mg/ml (0.25%) 30ml vial ONE (16:56)
[2019-11-07] MEDS ORDERED: HYDROcodone/acetaminophen 10/325mg tab PO PRN ×2 (17:10)
[2019-11-07] MEDS ORDERED: naloxone 0.4 mg/ml inj IV PRN (17:10)
[2019-11-07] MEDS ORDERED: metoclopramide 5 mg/ml inj IV PRN (17:10)
[2019-11-07] MEDS ORDERED: CADD PCA waste documentation MC PRN (17:10)
--- NOTE | 2019-11-07 17:20 | NUR ---
Patient being transferred to 2041. Report called to receiving RN.
--- NOTE | 2019-11-07 17:55 | NUR ---
Received from OR via bed , accompanied by Anesthesiologist dr vu and report given by Anesthesiolgist. patient sedated and vented see rt note. et tube 22cm at teeth. chest tube at water seal with air leak which dr booth is aware and has reviewed chest xray and abg . scant out put to chest tube. central line to right neck double lumen with levophed gtt to controll b/p which v/s are stable at this time and patients 02 sats 100% on 60%fio2. scd on. artline to lue. f/c draining clear yellow urine. 20g piv lue, 18g rue piv and 22g piv rue. diprovan and fentanyl gtt running for sedation per protical. restraints on per protical.labs drawn. accucheck 104.
[2019-11-07] MEDS ORDERED: propofol 1000mg/100ml bottle 100 ML IV SCH (18:02)
[2019-11-07] MEDS ORDERED: propofol 1000mg/100ml bottle 100 ML IV ONE (18:07)
[2019-11-07] MEDS: FENTANYL-0.9 % NACL/PF 100 ML IV PRN (18:08)
[2019-11-07 18:45] LABS: ABG BASE EXCESS -0.7 mmol/L (-2.0-3.0); ABG HCO3 22.3 mmol/L (22.0-26.0); ABG OXYGEN SATURATION 99.2 % (95-98); ABG PCO2 (T) 30.5 mmHg (35.0-45.0); ABG PO2 (T) 192.4 mmHg (83-108); FCOHb 0.3 % (0.5-1.5); FMetHb 0.4 % (0.3-1.12); FO2Hb 98.5 % (94-100); PATIENT TEMPERATURE 36.3; PEEP 5 cm H2O; RESPIRATORY RATE 16 b/min; TIDAL VOLUME 500 mL; TOTAL HEMOGLOBIN 11.5 G/dl (14.0-17.9)
--- NOTE | 2019-11-07 18:45 | NUR ---
patient sedated and vented see rt notes. et tube 22cm at teeth. chest tube at water seal with air leak which dr booth is aware and has reviewed chest xray and most recent abg and vent settings changed to 40% fi02 and rate 12 been rt notified and will change settings. scant out put to chest tube still. central line to right neck double lumen with levophed gtt to controll b/p which v/s are stable at this time and patients 02 sats 100% . artline to lue. f/c draining clear yellow urine. , 18g rue piv and 22g piv rue. diprovan and fentanyl gtt running for sedation per protical. restraints on per protical.labs drawn. accucheck 104. patient taken to 2041 with all belongings and hooked up to monitors in room and report given to supervisor agricultural education who has taken over patient care.
[2019-11-07 18:49] LABS: ALBUMIN 2.2 G/DL (3.4-5.0); ANION GAP 6 (8-16); BLOOD UREA NITROGEN 20 MG/DL (7-18); BUN/CREATININE RATIO 28.6 (5.4-32.0); CHLORIDE 103 MMOL/L (99-107); GLUCOSE 174 MG/DL (70-104); POTASSIUM 4.7 MMOL/L (3.5-5.1); SODIUM 137 MMOL/L (135-145); TOTAL CARBON DIOXIDE 27.7 MMOL/L (24-32); eGFR > 90 ML/MIN
[2019-11-07 18:50] LABS: BASOPHILS # (AUTO) 0.1 X10'3 (0-0.2); BASOPHILS % (AUTO) 0.5 % (0-1); EOSINOPHILS % (AUTO) 0.2 % (0-6); HEMATOCRIT 31.9 % (42.0-52.0); HEMOGLOBIN 10.4 g/dl (14.0-17.9); LYMPHOCYTES # (AUTO) 1.1 X10'3 (1.1-4.8); MEAN CORPUSCULAR HEMOGLOBIN 26.6 PG (27.0-31.0); MEAN CORPUSCULAR HGB CONC 32.6 g/dL (33.0-36.5); MEAN CORPUSCULAR VOLUME 81.5 FL (78-98); MEAN PLATELET VOLUME 7.4 FL (7.4-10.4); MONOCYTES # (AUTO) 1.1 X10'3 (0-0.9); MONOCYTES % (AUTO) 5.7 % (2-12); NEUTROPHILS # (AUTO) 16.8 X10'3 (1.8-7.7); NEUTROPHILS % (AUTO) 87.6 % (42-75); PLATELET COUNT 544 X10'3 (140-440); RED BLOOD COUNT 3.92 X10'6 (4.70-6.10); RED CELL DISTRIBUTION WIDTH 17.1 % (11.5-14.5); WHITE BLOOD COUNT 19.2 X10'3 (4.5-11.0)
[2019-11-07] MEDS: ROPIVAcaine 0.2% (10 MG/5 ML) BOLUS INJECTION ADDCANAL PRN ×2 (19:26→19:56)
[2019-11-07] MEDS: propofol 1000mg/100ml bottle 100 ML IV SCH (19:44)
[2019-11-07] MEDS: lisinopril 5mg tablet PO SCH (19:46)
[2019-11-07] MEDS: gabapentin 300mg capsule PO SCH (19:46)
[2019-11-07] MEDS: ROPIVAcaine 0.2%/PF PUMP/bolus 550 ML ADDCANAL SCH (19:59)
--- NOTE | 2019-11-07 21:30 | NUR ---
Spoke w/AUBREY Villanueva regarding regulatory affairs director consult request per Dr. Gandhi
[2019-11-07] MEDS: NORepinephrine 8mg/ 250ml NS 250 ML IV SCH (23:39)
[2019-11-07] MEDS: ceFAZolin 1GM/D5W- ADD-VANTAGE 50 ML IV SCH (23:39)
[2019-11-08] VITALS (24 sets, daily range): BP systolic 86–129; BP diastolic 47–77
[2019-11-08 02:46] LABS: BASOPHILS % (AUTO) 0.2 % (0-1); EOSINOPHILS % (AUTO) 0 % (0-6); HEMATOCRIT 31.6 % (42.0-52.0); HEMOGLOBIN 10.4 g/dl (14.0-17.9); LYMPHOCYTES # (AUTO) 1.3 X10'3 (1.1-4.8); LYMPHOCYTES % (AUTO) 7.1 % (21-51); MEAN CORPUSCULAR HEMOGLOBIN 26.9 PG (27.0-31.0); MEAN CORPUSCULAR VOLUME 81.5 FL (78-98); MEAN PLATELET VOLUME 7.3 FL (7.4-10.4); MONOCYTES # (AUTO) 1.4 X10'3 (0-0.9); MONOCYTES % (AUTO) 7.9 % (2-12); NEUTROPHILS # (AUTO) 15.3 X10'3 (1.8-7.7); NEUTROPHILS % (AUTO) 84.8 % (42-75); PLATELET COUNT 571 X10'3 (140-440); RED BLOOD COUNT 3.88 X10'6 (4.70-6.10); RED CELL DISTRIBUTION WIDTH 16.9 % (11.5-14.5)
[2019-11-08 02:54] LABS: ALANINE AMINOTRANSFERASE 23 U/L (12-78); ALBUMIN 2.2 G/DL (3.4-5.0); ALBUMIN/GLOBULIN RATIO 0.5 (1.1-1.5); ALKALINE PHOSPHATASE 105 IU/L (46-116); ANION GAP 7 (8-16); ASPARTATE AMINO TRANSFERASE 34 U/L (10-37); BILIRUBIN,TOTAL 0.4 MG/DL (0.1-1.0); BLOOD UREA NITROGEN 20 MG/DL (7-18); CALCIUM 8.9 MG/DL (8.5-10.1); CHLORIDE 104 MMOL/L (99-107); GLUCOSE 174 MG/DL (70-104); POTASSIUM 4.9 MMOL/L (3.5-5.1); SODIUM 138 MMOL/L (135-145); TOTAL CARBON DIOXIDE 27.4 MMOL/L (24-32); TRIGLYCERIDES 75 MG/DL (20-135); eGFR > 90 ML/MIN
[2019-11-08 04:15] LABS: ABG BASE EXCESS 0.4 mmol/L (-2.0-3.0); ABG HCO3 25.3 mmol/L (22.0-26.0); ABG OXYGEN SATURATION 98.6 % (95-98); ABG PCO2 (T) 43.4 mmHg (35.0-45.0); ABG PH (T) 7.387 (7.350-7.450); ABG PO2 (T) 133.8 mmHg (83-108); ALLEN'S TEST POSITIVE; FCOHb 0.3 % (0.5-1.5); FMetHb 0.3 % (0.3-1.12); PATIENT TEMPERATURE 37.7; PEEP 5 cm H2O; RESPIRATORY RATE 12 b/min; TIDAL VOLUME 500 mL
[2019-11-08] MEDS: propofol 1000mg/100ml bottle 100 ML IV SCH (04:21)
[2019-11-08] MEDS: FENTANYL-0.9 % NACL/PF 100 ML IV PRN (04:21)
[2019-11-08] MEDS: lactose-reduced food (Ensure High Protein) 237ml bottle PO SCH ×3 (08:00→18:00)
[2019-11-08] MEDS: K and/or MAG REPLACEMENT MC SCH ×2 (08:00→20:00)
[2019-11-08] MEDS: furosemide 40mg tablet PO SCH (08:00)
[2019-11-08] MEDS: ceFAZolin 1GM/D5W- ADD-VANTAGE 50 ML IV SCH (08:51)
[2019-11-08] MEDS: gabapentin 300mg capsule PO SCH ×2 (10:34→20:59)
[2019-11-08] MEDS: carVEDilol 3.125mg tablet PO SCH ×2 (10:34→20:00)
--- NOTE | 2019-11-08 12:24 | NUR ---
Reassessment: patient is s/p right thoracotomy with decortication on 11/06. Appetite was good prior to surgery, eating average of 75% PO intake of regular diet. Patient now on heart healthy diet as of last night, was extubated yesterday. Pending PO intake post op. Pt admit with hydropneumothorax. Pt recently treated for empyema at [facility], currently with chest tubes in place per MD notes. Pt was receiving Ensure High Protein TID documented with 100% PO intake, will resume. LBM 11/04. Will continue to follow. Recommendations: 1) Continue heart healthy diet 2) Ensure High Protein TID 3) Bowel care PRN 4) Wt per rx Addendum: 11/08/19 at [address] Amended: Links added.
--- NOTE | 2019-11-08 12:26 | NUR ---
Reassessment: patient is s/p right thoracotomy with decortication on 11/06. Appetite was good prior to surgery, eating average of 75% PO intake of regular diet. Patient now on heart healthy diet as of last night, was extubated yesterday. Pending PO intake post op. Pt admit with hydropneumothorax. Pt recently treated for empyema at [facility], currently with chest tubes in place per MD notes. Pt was receiving Ensure High Protein TID documented with 100% PO intake, will resume. LBM 11/04. Will continue to follow. Recommendations: 1) Continue heart healthy diet 2) Ensure High Protein TID 3) Bowel care PRN 4) Wt per rx Addendum: 11/08/19 at [address] Amended: Links added.
--- NOTE | 2019-11-08 18:15 | NUR ---
Patient in room ICU 2041. I have received report from Karl, and had the opportunity to ask questions and assume patient care.
--- NOTE | 2019-11-08 18:21 | NUR ---
Problems reprioritized. Patient report given, questions answered & plan of care reviewed with Myrna JOHANSEN.
[2019-11-08] MEDS: lisinopril 5mg tablet PO SCH (20:37)
--- NOTE | 2019-11-08 20:37 | NUR ---
Patient's SBP is in 104's. Will hold on patient's lisinopril and coreg for now. Patient is alert, oriented x4.
[2019-11-08] MEDS: NORepinephrine 8mg/ 250ml NS 250 ML IV SCH (20:39)
[2019-11-08] MEDS: ROPIVAcaine 0.2%/PF PUMP/bolus 550 ML ADDCANAL SCH (21:20)
[2019-11-08] MEDS: acetaminophen 325mg tablet PO PRN (21:20)
[2019-11-09] VITALS (19 sets, daily range): BP systolic 93–139; BP diastolic 54–78
--- NOTE | 2019-11-09 01:15 | NUR ---
patient is resting, chest tube is patent but air leak is visible. No sign ans symptom of pain or any respiratory issue. Patient is using his IS and Flutter.
--- NOTE | 2019-11-09 03:00 | NUR ---
patient to get a bath. Does not want to move himself. Patient is alert, oriented x4.
[2019-11-09 03:04] LABS: BASOPHILS % (AUTO) 0.3 % (0-1); EOSINOPHILS % (AUTO) 0.3 % (0-6); HEMATOCRIT 26.7 % (42.0-52.0); HEMOGLOBIN 8.9 g/dl (14.0-17.9); LYMPHOCYTES # (AUTO) 2.2 X10'3 (1.1-4.8); LYMPHOCYTES % (AUTO) 19.4 % (21-51); MEAN CORPUSCULAR HEMOGLOBIN 27.1 PG (27.0-31.0); MEAN CORPUSCULAR HGB CONC 33.3 g/dL (33.0-36.5); MEAN CORPUSCULAR VOLUME 81.5 FL (78-98); MEAN PLATELET VOLUME 7.4 FL (7.4-10.4); MONOCYTES # (AUTO) 1.9 X10'3 (0-0.9); MONOCYTES % (AUTO) 16.5 % (2-12); NEUTROPHILS # (AUTO) 7.2 X10'3 (1.8-7.7); NEUTROPHILS % (AUTO) 63.5 % (42-75); PLATELET COUNT 428 X10'3 (140-440); RED BLOOD COUNT 3.27 X10'6 (4.70-6.10); RED CELL DISTRIBUTION WIDTH 16.8 % (11.5-14.5); WHITE BLOOD COUNT 11.3 X10'3 (4.5-11.0)
[2019-11-09 03:07] LABS: ALANINE AMINOTRANSFERASE 21 U/L (12-78); ALBUMIN 1.9 G/DL (3.4-5.0); ALBUMIN/GLOBULIN RATIO 0.4 (1.1-1.5); ALKALINE PHOSPHATASE 80 IU/L (46-116); ANION GAP 3 (8-16); ASPARTATE AMINO TRANSFERASE 27 U/L (10-37); BILIRUBIN,TOTAL 0.3 MG/DL (0.1-1.0); BLOOD UREA NITROGEN 18 MG/DL (7-18); BUN/CREATININE RATIO 28.6 (5.4-32.0); CALCIUM 9.2 MG/DL (8.5-10.1); CHLORIDE 103 MMOL/L (99-107); CREATININE 0.63 MG/DL (0.60-1.10); GLUCOSE 84 MG/DL (70-104); POTASSIUM 4.5 MMOL/L (3.5-5.1); SODIUM 137 MMOL/L (135-145); TOTAL CARBON DIOXIDE 30.6 MMOL/L (24-32); TOTAL PROTEIN 6.3 G/DL (6.4-8.2); eGFR > 90 ML/MIN
[2019-11-09 04:51] LABS: TOTAL CELLS COUNTED 100
[2019-11-09 04:53] LABS: ANISOCYTOSIS 1+; PLATELET ESTIMATE NORMAL
[2019-11-09] MEDS: ringers solution, lacted 1,000 ML IV SCH ×2 (04:55→13:42)
--- NOTE | 2019-11-09 06:30 | NUR ---
Patient in room ICU 2041. I have received report from Myrna JOHANSEN and had the opportunity to ask questions and assume patient care.
--- NOTE | 2019-11-09 06:30 | NUR ---
Problems reprioritized. Patient report given to Mony, questions answered & plan of care reviewed with .
[2019-11-09] MEDS: K and/or MAG REPLACEMENT MC SCH ×2 (08:00→20:00)
[2019-11-09] MEDS: carVEDilol 3.125mg tablet PO SCH ×2 (08:41→20:16)
[2019-11-09] MEDS: gabapentin 300mg capsule PO SCH (08:41)
[2019-11-09] MEDS: furosemide 40mg tablet PO SCH (08:41)
[2019-11-09] MEDS: lactose-reduced food (Ensure High Protein) 237ml bottle PO SCH ×4 (08:42→19:00)
--- NOTE | 2019-11-09 17:15 | NUR ---
Problems reprioritized. Patient report given, questions answered & plan of care reviewed with Lisa JOHANSEN.
--- NOTE | 2019-11-09 18:05 | NUR ---
Patient in room [facility] 345. I have received report from Adriana JOHANSEN and had the opportunity to ask questions and assume patient care.
--- NOTE | 2019-11-09 18:15 | NUR ---
Patient in room [facility] 345. I have received report from Lisa JOHANSEN and had the opportunity to ask questions and assume patient care.
--- NOTE | 2019-11-09 18:59 | NUR ---
Patient orientated to room, report given to Zenaida JOHANSEN
[2019-11-09 22:04] LABS: ALBUMIN 1.8 G/DL (3.4-5.0); ANION GAP 1 (8-16); BLOOD UREA NITROGEN 16 MG/DL (7-18); BUN/CREATININE RATIO 21.1 (5.4-32.0); CALCIUM 8.4 MG/DL (8.5-10.1); CHLORIDE 102 MMOL/L (99-107); CREATININE 0.76 MG/DL (0.60-1.10); GLUCOSE 159 MG/DL (70-104); POTASSIUM 4.1 MMOL/L (3.5-5.1); SODIUM 136 MMOL/L (135-145); TOTAL CARBON DIOXIDE 32.8 MMOL/L (24-32); eGFR > 90 ML/MIN
[2019-11-09] MEDS: lisinopril 5mg tablet PO SCH (22:14)
[2019-11-10] VITALS: BP 111/65
[2019-11-10 06:20] LABS: BASOPHILS % (AUTO) 0.3 % (0-1); EOSINOPHILS # (AUTO) 0.1 X10'3 (0-0.9); EOSINOPHILS % (AUTO) 0.7 % (0-6); HEMATOCRIT 26.5 % (42.0-52.0); HEMOGLOBIN 8.5 g/dl (14.0-17.9); LYMPHOCYTES # (AUTO) 2.6 X10'3 (1.1-4.8); LYMPHOCYTES % (AUTO) 20.8 % (21-51); MEAN CORPUSCULAR HEMOGLOBIN 25.9 PG (27.0-31.0); MEAN CORPUSCULAR HGB CONC 32.2 g/dL (33.0-36.5); MEAN CORPUSCULAR VOLUME 80.5 FL (78-98); MEAN PLATELET VOLUME 7.3 FL (7.4-10.4); MONOCYTES # (AUTO) 1.8 X10'3 (0-0.9); MONOCYTES % (AUTO) 14.5 % (2-12); NEUTROPHILS % (AUTO) 63.7 % (42-75); PLATELET COUNT 443 X10'3 (140-440); RED BLOOD COUNT 3.29 X10'6 (4.70-6.10); RED CELL DISTRIBUTION WIDTH 17.1 % (11.5-14.5); WHITE BLOOD COUNT 12.6 X10'3 (4.5-11.0)
[2019-11-10 06:28] LABS: ALANINE AMINOTRANSFERASE 21 U/L (12-78); ALBUMIN 1.8 G/DL (3.4-5.0); ALBUMIN/GLOBULIN RATIO 0.4 (1.1-1.5); ALKALINE PHOSPHATASE 70 IU/L (46-116); ANION GAP 0 (8-16); ASPARTATE AMINO TRANSFERASE 31 U/L (10-37); BILIRUBIN,TOTAL 0.2 MG/DL (0.1-1.0); BLOOD UREA NITROGEN 17 MG/DL (7-18); BUN/CREATININE RATIO 23.9 (5.4-32.0); CALCIUM 8.7 MG/DL (8.5-10.1); CHLORIDE 103 MMOL/L (99-107); CREATININE 0.71 MG/DL (0.60-1.10); GLUCOSE 82 MG/DL (70-104); SODIUM 136 MMOL/L (135-145); TOTAL PROTEIN 6.3 G/DL (6.4-8.2); eGFR > 90 ML/MIN
--- NOTE | 2019-11-10 06:36 | NUR ---
Patient in room [facility] 345. I have received report from Zenaida JOHANSEN and had the opportunity to ask questions and assume patient care.
--- NOTE | 2019-11-10 06:50 | NUR ---
Problems reprioritized. Patient report given, questions answered & plan of care reviewed with Caroline JOHANSEN.
[2019-11-10 08:00] VITALS: BP 115/72
[2019-11-10] MEDS: K and/or MAG REPLACEMENT MC SCH ×2 (08:00→19:53)
[2019-11-10] MEDS: furosemide 40mg tablet PO SCH (08:04)
[2019-11-10] MEDS: carVEDilol 3.125mg tablet PO SCH ×2 (08:04→19:51)
[2019-11-10] MEDS: ROPIVAcaine 0.2%/PF PUMP/bolus 550 ML ADDCANAL SCH (08:51)
[2019-11-10] MEDS: HYDROcodone/acetaminophen 10/325mg tab PO PRN ×2 (10:36→16:15)
[2019-11-10 12:00] VITALS: BP 100/56
--- NOTE | 2019-11-10 12:17 | NUR ---
Reassessment: Pt appears to have a good appetite documented with 100% PO intake however down to 50% at breakfast this morning. Mechanical soft has just been added to diet order reporting pt with dentures and difficulty chewing some food. Likely good PO intake will resume with texture modification. Pt also with 100% PO intake of ONS meeting nutrient needs. Pt documented as constipated with LBM 3/2, d/w dietary to send prune juice with next meal to assist with bowel regularity. Will continue to follow and monitor need for further nutrition intervention. Recommendations: 1) Continue mechanical soft heart healthy diet 2) Ensure High Protein TID 3) Bowel care PRN; monitor need for additional 4) Wt per rx Addendum: 11/10/19 at [address] Amended: Links added.
[2019-11-10] MEDS: ROPIVAcaine 0.2% (10 MG/5 ML) BOLUS INJECTION ADDCANAL PRN ×2 (13:00→18:31)
[2019-11-10] MEDS: lactose-reduced food (Ensure High Protein) 237ml bottle PO SCH ×2 (13:12→18:44)
[2019-11-10] MEDS: ceFAZolin 1GM/D5W- ADD-VANTAGE 50 ML IV SCH ×2 (16:15→23:56)
[2019-11-10 17:32] LABS: ALBUMIN 1.8 G/DL (3.4-5.0); ANION GAP -1 (8-16); BLOOD UREA NITROGEN 23 MG/DL (7-18); BUN/CREATININE RATIO 26.7 (5.4-32.0); CALCIUM 8.7 MG/DL (8.5-10.1); CHLORIDE 104 MMOL/L (99-107); CREATININE 0.86 MG/DL (0.60-1.10); GLUCOSE 99 MG/DL (70-104); SODIUM 138 MMOL/L (135-145); TOTAL CARBON DIOXIDE 34.6 MMOL/L (24-32); eGFR 90 ML/MIN
--- NOTE | 2019-11-10 18:31 | NUR ---
Problems reprioritized. Patient report given, questions answered & plan of care reviewed with Lalita JOHANSEN.
[2019-11-10 20:00] VITALS: BP 136/67
[2019-11-10] MEDS: lisinopril 5mg tablet PO SCH (21:55)
[2019-11-11] VITALS: BP 125/74
[2019-11-11] MEDS: ringers solution, lacted 1,000 ML IV SCH (04:55)
[2019-11-11 05:25] LABS: ALANINE AMINOTRANSFERASE 19 U/L (12-78); ALBUMIN/GLOBULIN RATIO 0.4 (1.1-1.5); ALKALINE PHOSPHATASE 69 IU/L (46-116); ANION GAP 4 (8-16); ASPARTATE AMINO TRANSFERASE 30 U/L (10-37); BILIRUBIN,TOTAL 0.2 MG/DL (0.1-1.0); BLOOD UREA NITROGEN 19 MG/DL (7-18); BUN/CREATININE RATIO 32.8 (5.4-32.0); CALCIUM 9.1 MG/DL (8.5-10.1); CHLORIDE 103 MMOL/L (99-107); CREATININE 0.58 MG/DL (0.60-1.10); GLUCOSE 88 MG/DL (70-104); SODIUM 138 MMOL/L (135-145); TOTAL CARBON DIOXIDE 31.5 MMOL/L (24-32); TOTAL PROTEIN 6.6 G/DL (6.4-8.2); eGFR > 90 ML/MIN
--- NOTE | 2019-11-11 06:53 | NUR ---
Patient in room [facility] 345. I have received report from ELENO Estevez and had the opportunity to ask questions and assume patient care.
[2019-11-11 07:00] VITALS: BP 119/73
[2019-11-11] MEDS: K and/or MAG REPLACEMENT MC SCH ×2 (08:00→20:00)
[2019-11-11 08:36] LABS: BASOPHILS # (AUTO) 0.1 X10'3 (0-0.2); EOSINOPHILS # (AUTO) 0.2 X10'3 (0-0.9); EOSINOPHILS % (AUTO) 1.9 % (0-6); HEMATOCRIT 26.1 % (42.0-52.0); HEMOGLOBIN 8.7 g/dl (14.0-17.9); LYMPHOCYTES # (AUTO) 2.2 X10'3 (1.1-4.8); LYMPHOCYTES % (AUTO) 21.7 % (21-51); MEAN CORPUSCULAR HEMOGLOBIN 27.1 PG (27.0-31.0); MEAN CORPUSCULAR HGB CONC 33.3 g/dL (33.0-36.5); MEAN CORPUSCULAR VOLUME 81.2 FL (78-98); MEAN PLATELET VOLUME 7.2 FL (7.4-10.4); MONOCYTES # (AUTO) 1.3 X10'3 (0-0.9); MONOCYTES % (AUTO) 12.8 % (2-12); NEUTROPHILS # (AUTO) 6.5 X10'3 (1.8-7.7); NEUTROPHILS % (AUTO) 62.6 % (42-75); PLATELET COUNT 533 X10'3 (140-440); RED BLOOD COUNT 3.21 X10'6 (4.70-6.10); RED CELL DISTRIBUTION WIDTH 17.3 % (11.5-14.5); WHITE BLOOD COUNT 10.3 X10'3 (4.5-11.0)
[2019-11-11] MEDS: furosemide 40mg tablet PO SCH (08:39)
[2019-11-11] MEDS: enoxaparin 40mg/0.4ml syringe SUBCUT SCH (08:39)
[2019-11-11] MEDS: carVEDilol 3.125mg tablet PO SCH ×2 (08:39→20:00)
[2019-11-11] MEDS: ceFAZolin 1GM/D5W- ADD-VANTAGE 50 ML IV SCH ×3 (08:44→23:29)
[2019-11-11] MEDS: lactose-reduced food (Ensure High Protein) 237ml bottle PO SCH ×3 (08:44→18:00)
[2019-11-11] MEDS: oxyCODONE/APAP 10/325mg tablet PO PRN ×3 (09:48→23:29)
[2019-11-11 12:00] VITALS: BP 114/72
--- NOTE | 2019-11-11 13:30 | NUR ---
Dressing to right chest tubes and incision changed
[2019-11-11 17:29] LABS: ANION GAP 3 (8-16); BLOOD UREA NITROGEN 20 MG/DL (7-18); BUN/CREATININE RATIO 31.3 (5.4-32.0); CALCIUM 8.9 MG/DL (8.5-10.1); CHLORIDE 101 MMOL/L (99-107); CREATININE 0.64 MG/DL (0.60-1.10); GLUCOSE 85 MG/DL (70-104); POTASSIUM 3.8 MMOL/L (3.5-5.1); SODIUM 136 MMOL/L (135-145); TOTAL CARBON DIOXIDE 32.4 MMOL/L (24-32); eGFR > 90 ML/MIN
[2019-11-11] MEDS: ROPIVAcaine 0.2%/PF PUMP/bolus 550 ML ADDCANAL SCH (18:11)
--- NOTE | 2019-11-11 18:43 | NUR ---
Problems reprioritized. Patient report given, questions answered & plan of care reviewed with ELENO Buckner.
[2019-11-11 19:00] VITALS: BP 100/62
[2019-11-11] MEDS: lisinopril 5mg tablet PO SCH (21:13)
[2019-11-11] MEDS: lactobacillus rhamnosus 10,000 MMU CELLS/CAPSULE PO SCH (21:13)
[2019-11-12] VITALS: BP 140/77
[2019-11-12] MEDS: oxyCODONE/APAP 10/325mg tablet PO PRN ×3 (04:14→22:40)
[2019-11-12 05:27] LABS: ALANINE AMINOTRANSFERASE 19 U/L (12-78); ALBUMIN/GLOBULIN RATIO 0.4 (1.1-1.5); ALKALINE PHOSPHATASE 74 IU/L (46-116); ANION GAP 4 (8-16); ASPARTATE AMINO TRANSFERASE 30 U/L (10-37); BILIRUBIN,TOTAL 0.2 MG/DL (0.1-1.0); BLOOD UREA NITROGEN 16 MG/DL (7-18); BUN/CREATININE RATIO 27.6 (5.4-32.0); CALCIUM 9.1 MG/DL (8.5-10.1); CHLORIDE 101 MMOL/L (99-107); CREATININE 0.58 MG/DL (0.60-1.10); GLUCOSE 87 MG/DL (70-104); SODIUM 136 MMOL/L (135-145); TOTAL CARBON DIOXIDE 30.7 MMOL/L (24-32); TOTAL PROTEIN 6.9 G/DL (6.4-8.2); eGFR > 90 ML/MIN
[2019-11-12 06:13] LABS: EOSINOPHILS # (AUTO) 0.2 X10'3 (0-0.9); EOSINOPHILS % (AUTO) 2.1 % (0-6); HEMOGLOBIN 9.6 g/dl (14.0-17.9); LYMPHOCYTES # (AUTO) 2.6 X10'3 (1.1-4.8); MONOCYTES # (AUTO) 1.3 X10'3 (0-0.9)
[2019-11-12 06:15] LABS: BASOPHILS % (AUTO) 0.5 % (0-1); HEMATOCRIT 29.2 % (42.0-52.0); LYMPHOCYTES % (AUTO) 27.7 % (21-51); MEAN CORPUSCULAR HEMOGLOBIN 26.4 PG (27.0-31.0); MEAN CORPUSCULAR HGB CONC 32.9 g/dL (33.0-36.5); MEAN CORPUSCULAR VOLUME 80.2 FL (78-98); MONOCYTES % (AUTO) 13.8 % (2-12); NEUTROPHILS # (AUTO) 5.3 X10'3 (1.8-7.7); NEUTROPHILS % (AUTO) 55.9 % (42-75); PLATELET COUNT 604 X10'3 (140-440); RED BLOOD COUNT 3.64 X10'6 (4.70-6.10); RED CELL DISTRIBUTION WIDTH 17.1 % (11.5-14.5); WHITE BLOOD COUNT 9.5 X10'3 (4.5-11.0)
--- NOTE | 2019-11-12 06:15 | NUR ---
Problems reprioritized. Patient report given, questions answered & plan of care reviewed with Julie. JOHANSEN. Addendum: 11/12/19 at 0649 by Sita Zuñiga RN Amended: Links added.
--- NOTE | 2019-11-12 06:54 | NUR ---
Patient in room [facility] 345. I have received report from JOBY JOHANSEN and had the opportunity to ask questions and assume patient care.
[2019-11-12 07:00] VITALS: BP 117/68
[2019-11-12] MEDS: carVEDilol 3.125mg tablet PO SCH ×2 (07:56→20:00)
[2019-11-12] MEDS: furosemide 40mg tablet PO SCH (07:56)
[2019-11-12] MEDS: lactobacillus rhamnosus 10,000 MMU CELLS/CAPSULE PO SCH ×2 (07:56→20:33)
[2019-11-12] MEDS: K and/or MAG REPLACEMENT MC SCH ×2 (08:00→20:00)
[2019-11-12] MEDS: enoxaparin 40mg/0.4ml syringe SUBCUT SCH (08:00)
[2019-11-12] MEDS: lactose-reduced food (Ensure High Protein) 237ml bottle PO SCH ×3 (08:00→18:02)
[2019-11-12] MEDS: ceFAZolin 1GM/D5W- ADD-VANTAGE 50 ML IV SCH ×2 (08:13→16:47)
[2019-11-12] MEDS: ROPIVAcaine 0.2%/PF PUMP/bolus 550 ML ADDCANAL SCH (09:07)
[2019-11-12 11:00] VITALS: BP 80/49
[2019-11-12 11:15] VITALS: BP 108/63
[2019-11-12] MEDS: ROPIVAcaine 0.2% (10 MG/5 ML) BOLUS INJECTION ADDCANAL PRN ×2 (18:10→19:00)
--- NOTE | 2019-11-12 18:20 | NUR ---
ALL CARES GIVEN TO PATIENT. pAIN PUMP CHANGED THIS AM, PATIENT EDUCATED AGAIN ON USAGE OF PUSHING PUMP FOR BOLUS DOSE. aMBULATED WITH PT. CHEST UBE DRAINED 50MLS SEROSANG. REPORT GIVEN TO EMA JOHANSEN
[2019-11-12 18:30] VITALS: BP 97/70
[2019-11-12] MEDS: lisinopril 5mg tablet PO SCH (20:31)
[2019-11-13] VITALS: BP 96/47
[2019-11-13] MEDS: oxyCODONE/APAP 10/325mg tablet PO PRN ×3 (04:07→16:21)
--- NOTE | 2019-11-13 06:31 | NUR ---
Patient in room [facility] 345. I have received report from ryan bourne and had the opportunity to ask questions and assume patient care.
--- NOTE | 2019-11-13 07:02 | NUR ---
Problems reprioritized. Patient report given, questions answered & plan of care reviewed with GERSON. Addendum: 11/13/19 at 0703 by Gabriel Hercules RN Amended: Links added.
[2019-11-13] MEDS: lactobacillus rhamnosus 10,000 MMU CELLS/CAPSULE PO SCH ×2 (07:32→19:59)
[2019-11-13] MEDS: furosemide 40mg tablet PO SCH (07:32)
[2019-11-13] MEDS: enoxaparin 40mg/0.4ml syringe SUBCUT SCH (07:33)
[2019-11-13] MEDS: ceFAZolin 1GM/D5W- ADD-VANTAGE 50 ML IV SCH ×4 (07:34→23:48)
[2019-11-13] MEDS: carVEDilol 3.125mg tablet PO SCH ×2 (08:00→19:56)
[2019-11-13] MEDS: K and/or MAG REPLACEMENT MC SCH ×2 (08:00→20:00)
[2019-11-13] MEDS: lactose-reduced food (Ensure High Protein) 237ml bottle PO SCH ×3 (08:23→18:12)
[2019-11-13 08:32] VITALS: BP 103/56
--- NOTE | 2019-11-13 12:30 | NUR ---
Received report from Lisa JOHANSEN.
[2019-11-13 13:01] VITALS: BP 95/55
--- NOTE | 2019-11-13 18:18 | NUR ---
Gave report to Lisa JOHANSEN
--- NOTE | 2019-11-13 18:19 | NUR ---
reviewed student nurse documentation
--- NOTE | 2019-11-13 18:23 | NUR ---
patient seen today by Dr hidalgo , no new orders. patient ambulated with PT 300ft. Pain pump Dc by anesthesiologist . patient responds well to percocet 10mg x2. pain 2/10 following administration. All cares given. Chest tube drainage 50mls this shift serosang drainage. Report given to Britton JOHANSEN
[2019-11-13 18:30] VITALS: BP 102/55
[2019-11-13] MEDS: lisinopril 5mg tablet PO SCH (19:56)
[2019-11-14] VITALS: BP 103/48
[2019-11-14] MEDS: oxyCODONE/APAP 10/325mg tablet PO PRN ×4 (00:34→20:30)
--- NOTE | 2019-11-14 05:16 | NUR ---
NO OUTPUT FROM CHEST TUBES NOTED. 0 FOR 12 H NOC
--- NOTE | 2019-11-14 06:15 | NUR ---
Patient in room [facility] 345. I have received report from ELENO Jarquin and had the opportunity to ask questions and assume patient care.
--- NOTE | 2019-11-14 06:18 | NUR ---
Problems reprioritized. Patient report given, questions answered & plan of care reviewed with MAKI. Addendum: 11/14/19 at 0618 by Gabriel Hercules RN Amended: Links added.
[2019-11-14 07:00] VITALS: BP 123/65
[2019-11-14] MEDS: K and/or MAG REPLACEMENT MC SCH ×2 (07:05→20:00)
[2019-11-14] MEDS: lactose-reduced food (Ensure High Protein) 237ml bottle PO SCH ×3 (08:05→18:04)
[2019-11-14] MEDS: lactobacillus rhamnosus 10,000 MMU CELLS/CAPSULE PO SCH ×2 (08:05→19:57)
[2019-11-14] MEDS: carVEDilol 3.125mg tablet PO SCH ×2 (08:05→20:00)
[2019-11-14] MEDS: furosemide 40mg tablet PO SCH (08:06)
[2019-11-14] MEDS: enoxaparin 40mg/0.4ml syringe SUBCUT SCH (08:06)
[2019-11-14] MEDS: ceFAZolin 1GM/D5W- ADD-VANTAGE 50 ML IV SCH ×3 (08:19→23:57)
[2019-11-14 11:00] VITALS: BP 97/60
--- NOTE | 2019-11-14 17:22 | NUR ---
Reassessment: Patient's PO intake continues to fluctuate, documented with 50-75% however up to 100% at dinner last night and lunch today, although pt documented to have refused breakfast today. PO intake of ONS fluctuates with 50-100% however pt documented to be refusing ONS today. Pt seen at bedside. Pt endorsing a good appetite and states he is getting full from meals and that he is drinking ONS. Pt provided with written alternative heart healthy menu and RD contact information. Pt denies food preferences at this time. RD encouraged PO intake of meals and ONS. [facility] 11/11. Will continue to follow and monitor need for further nutrition intervention. Recommendations: 1) Continue mechanical soft heart healthy diet 2) Ensure High Protein TID; encourage PO intake 3) Bowel care PRN; monitor need for additional 4) Wt per rx Addendum: 11/14/19 at [address] Amended: Links added.
--- NOTE | 2019-11-14 18:16 | NUR ---
Problems reprioritized. Patient report given, questions answered & plan of care reviewed with ELENO Jarquin.
[2019-11-14 18:30] VITALS: BP 100/61
[2019-11-14] MEDS: lisinopril 5mg tablet PO SCH (20:25)
[2019-11-15] VITALS: BP 125/68
[2019-11-15] MEDS: oxyCODONE/APAP 10/325mg tablet PO PRN ×4 (03:47→22:59)
[2019-11-15 04:57] LABS: BASOPHILS # (AUTO) 0.1 X10'3 (0-0.2); BASOPHILS % (AUTO) 1.4 % (0-1); EOSINOPHILS # (AUTO) 0.2 X10'3 (0-0.9); EOSINOPHILS % (AUTO) 2.5 % (0-6); HEMATOCRIT 28.4 % (42.0-52.0); HEMOGLOBIN 9.3 g/dl (14.0-17.9); LYMPHOCYTES # (AUTO) 2.4 X10'3 (1.1-4.8); LYMPHOCYTES % (AUTO) 24.6 % (21-51); MEAN CORPUSCULAR HEMOGLOBIN 26.4 PG (27.0-31.0); MEAN CORPUSCULAR HGB CONC 32.9 g/dL (33.0-36.5); MEAN CORPUSCULAR VOLUME 80.3 FL (78-98); MEAN PLATELET VOLUME 6.8 FL (7.4-10.4); MONOCYTES # (AUTO) 1.5 X10'3 (0-0.9); MONOCYTES % (AUTO) 15.5 % (2-12); NEUTROPHILS # (AUTO) 5.5 X10'3 (1.8-7.7); PLATELET COUNT 600 X10'3 (140-440); RED BLOOD COUNT 3.53 X10'6 (4.70-6.10); RED CELL DISTRIBUTION WIDTH 17.6 % (11.5-14.5); WHITE BLOOD COUNT 9.8 X10'3 (4.5-11.0)
[2019-11-15 05:23] LABS: ALBUMIN 2.2 G/DL (3.4-5.0); ANION GAP 3 (8-16); BLOOD UREA NITROGEN 19 MG/DL (7-18); BUN/CREATININE RATIO 27.1 (5.4-32.0); CALCIUM 8.8 MG/DL (8.5-10.1); CHLORIDE 101 MMOL/L (99-107); GLUCOSE 76 MG/DL (70-104); POTASSIUM 4.5 MMOL/L (3.5-5.1); SODIUM 136 MMOL/L (135-145); TOTAL CARBON DIOXIDE 32.1 MMOL/L (24-32); TRIGLYCERIDES 103 MG/DL (20-135); eGFR > 90 ML/MIN
--- NOTE | 2019-11-15 06:12 | NUR ---
Problems reprioritized. Patient report given, questions answered & plan of care reviewed with MAKI. Addendum: 11/15/19 at 0613 by Gabriel Hercules RN Amended: Links added.
[2019-11-15 07:00] VITALS: BP 110/51
[2019-11-15] MEDS: K and/or MAG REPLACEMENT MC SCH ×2 (07:14→20:00)
[2019-11-15 07:34] LABS: ANISOCYTOSIS 1+; PLATELET ESTIMATE INCREASED; TOTAL CELLS COUNTED 100
[2019-11-15 07:36] LABS: BURR CELLS FEW; POLYCHROMASIA FEW; SCHISTOCYTES FEW
[2019-11-15] MEDS: lactose-reduced food (Ensure High Protein) 237ml bottle PO SCH ×3 (08:00→18:06)
[2019-11-15] MEDS: carVEDilol 3.125mg tablet PO SCH ×2 (09:13→20:38)
[2019-11-15] MEDS: ceFAZolin 1GM/D5W- ADD-VANTAGE 50 ML IV SCH ×2 (09:13→16:43)
[2019-11-15] MEDS: lactobacillus rhamnosus 10,000 MMU CELLS/CAPSULE PO SCH ×2 (09:16→20:37)
[2019-11-15] MEDS: furosemide 40mg tablet PO SCH (09:16)
[2019-11-15] MEDS: enoxaparin 40mg/0.4ml syringe SUBCUT SCH (09:17)
[2019-11-15 11:00] VITALS: BP 117/65
--- NOTE | 2019-11-15 17:17 | NUR ---
Student documentation: Phyllis Archuleta RN with [facility], reviewed all interventions, assessments performed and documented by Sydney WOODWARD.
--- NOTE | 2019-11-15 18:29 | NUR ---
Patient in room [facility] 345. I have received report from Tamara JOHANSEN and had the opportunity to ask questions and assume patient care.
--- NOTE | 2019-11-15 18:43 | NUR ---
Problems reprioritized. Patient report given, questions answered & plan of care reviewed with ELNEO Estevez.
[2019-11-15 20:00] VITALS: BP 135/81
[2019-11-15] MEDS: lisinopril 5mg tablet PO SCH (20:42)
[2019-11-16] VITALS: BP 107/61
[2019-11-16] MEDS: ceFAZolin 1GM/D5W- ADD-VANTAGE 50 ML IV SCH ×2 (00:56→08:40)
--- NOTE | 2019-11-16 06:31 | NUR ---
Problems reprioritized. Patient report given, questions answered & plan of care reviewed with Lizz bourne.
--- NOTE | 2019-11-16 06:47 | NUR ---
Patient in room [facility]Y 349. I have received report from ELENO Estevez and had the opportunity to ask questions and assume patient care.
[2019-11-16 08:00] VITALS: BP 133/70
[2019-11-16] MEDS: K and/or MAG REPLACEMENT MC SCH ×2 (08:00→20:00)
[2019-11-16] MEDS: furosemide 40mg tablet PO SCH (08:36)
[2019-11-16] MEDS: carVEDilol 3.125mg tablet PO SCH ×2 (08:36→19:51)
[2019-11-16] MEDS: enoxaparin 40mg/0.4ml syringe SUBCUT SCH (08:37)
[2019-11-16] MEDS: lactobacillus rhamnosus 10,000 MMU CELLS/CAPSULE PO SCH ×2 (08:37→19:51)
[2019-11-16] MEDS: oxyCODONE/APAP 10/325mg tablet PO PRN ×3 (08:39→22:23)
[2019-11-16] MEDS: lactose-reduced food (Ensure High Protein) 237ml bottle PO SCH ×3 (08:40→18:28)
[2019-11-16 12:00] VITALS: BP 119/65
--- NOTE | 2019-11-16 14:49 | NUR ---
Dr Nixon in to see pt. Removed one of the two chest tube. Dressing replaced. incision with joel to right costal left open to air. Pt tolerated procedure well. Addendum: 11/16/19 at 1847 by Lizz Ramirez RN Dr. Gandhi performed chest tube removal.
[2019-11-16] MEDS: ceFAZolin/D5W- 1GM premix 50 ML IV SCH (15:56)
[2019-11-16] MEDS ORDERED: ceFAZolin 1GM/D5W- ADD-VANTAGE 50 ML IV SCH (16:00)
[2019-11-16 17:55] VITALS: BP 102/61
--- NOTE | 2019-11-16 18:15 | NUR ---
Patient in room JUDY 349. I have received report from Lizz JOHANSEN and had the opportunity to ask questions and assume patient care.
--- NOTE | 2019-11-16 18:47 | NUR ---
Patient in room [facility]Y 349. I have received report from ELENO Estevez and had the opportunity to ask questions and assume patient care. Pt resting comfortably. No SOB noted.
[2019-11-16 20:00] VITALS: BP 99/71
[2019-11-16] MEDS: lisinopril 5mg tablet PO SCH (21:00)
[2019-11-17] VITALS: BP 105/63
[2019-11-17] MEDS: ceFAZolin/D5W- 1GM premix 50 ML IV SCH ×3 (00:05→16:32)
--- NOTE | 2019-11-17 06:17 | NUR ---
Patient in room [facility]Y 349. I have received report from ELENO Estevez and had the opportunity to ask questions and assume patient care.
--- NOTE | 2019-11-17 06:27 | NUR ---
Problems reprioritized. Patient report given, questions answered & plan of care reviewed with Kymberly JOHANSEN.
--- NOTE | 2019-11-17 06:32 | NUR ---
Patient in room JUDY 349. I have received report from Saima Hogue RN and had the opportunity to ask questions and assume patient care.
[2019-11-17] MEDS: furosemide 40mg tablet PO SCH (07:31)
[2019-11-17] MEDS: lactobacillus rhamnosus 10,000 MMU CELLS/CAPSULE PO SCH ×2 (07:31→21:19)
[2019-11-17] MEDS: oxyCODONE/APAP 10/325mg tablet PO PRN ×3 (07:32→19:49)
[2019-11-17] MEDS: enoxaparin 40mg/0.4ml syringe SUBCUT SCH (07:33)
[2019-11-17] MEDS: carVEDilol 3.125mg tablet PO SCH ×2 (07:33→21:19)
[2019-11-17 08:00] VITALS: BP 110/68
[2019-11-17] MEDS: K and/or MAG REPLACEMENT MC SCH ×2 (08:00→20:00)
[2019-11-17] MEDS: lactose-reduced food (Ensure High Protein) 237ml bottle PO SCH ×3 (08:00→18:25)
[2019-11-17 10:21] LABS: BASOPHILS # (AUTO) 0.1 X10'3 (0-0.2); EOSINOPHILS # (AUTO) 0.2 X10'3 (0-0.9); EOSINOPHILS % (AUTO) 2.7 % (0-6); RED BLOOD COUNT 3.51 X10'6 (4.70-6.10); RED CELL DISTRIBUTION WIDTH 17.9 % (11.5-14.5)
[2019-11-17 10:23] LABS: BASOPHILS % (AUTO) 0.6 % (0-1); HEMATOCRIT 28.2 % (42.0-52.0); HEMOGLOBIN 9.4 g/dl (14.0-17.9); LYMPHOCYTES # (AUTO) 2.1 X10'3 (1.1-4.8); LYMPHOCYTES % (AUTO) 25.9 % (21-51); MEAN CORPUSCULAR HEMOGLOBIN 26.7 PG (27.0-31.0); MEAN CORPUSCULAR HGB CONC 33.2 g/dL (33.0-36.5); MEAN CORPUSCULAR VOLUME 80.4 FL (78-98); MEAN PLATELET VOLUME 6.7 FL (7.4-10.4); MONOCYTES # (AUTO) 1.3 X10'3 (0-0.9); MONOCYTES % (AUTO) 15.1 % (2-12); NEUTROPHILS # (AUTO) 4.6 X10'3 (1.8-7.7); NEUTROPHILS % (AUTO) 55.7 % (42-75); PLATELET COUNT 606 X10'3 (140-440); WHITE BLOOD COUNT 8.3 X10'3 (4.5-11.0)
[2019-11-17 10:39] LABS: ALBUMIN 2.3 G/DL (3.4-5.0); ANION GAP 5 (8-16); BLOOD UREA NITROGEN 20 MG/DL (7-18); BUN/CREATININE RATIO 25.6 (5.4-32.0); CALCIUM 9.2 MG/DL (8.5-10.1); CHLORIDE 99 MMOL/L (99-107); CREATININE 0.78 MG/DL (0.60-1.10); GLUCOSE 145 MG/DL (70-104); POTASSIUM 3.9 MMOL/L (3.5-5.1); SODIUM 135 MMOL/L (135-145); TOTAL CARBON DIOXIDE 30.7 MMOL/L (24-32); eGFR > 90 ML/MIN
[2019-11-17 12:00] VITALS: BP 122/64
--- NOTE | 2019-11-17 13:20 | NUR ---
Reassessment: Eating well, 75% average PO intake with 100% past three meals, 75-100% PO ensure high protein, and reports good appetite. [facility] 11/16. Will continue to follow. Recommendations: 1) Continue mechanical soft heart healthy diet 2) Ensure High Protein TID; encourage PO intake 3) Bowel care PRN; monitor need for additional 4) Wt per rx Addendum: 11/17/19 at [address] Amended: Links added.
[2019-11-17 18:00] VITALS: BP 106/60
--- NOTE | 2019-11-17 18:23 | NUR ---
Problems reprioritized. Patient report given, questions answered & plan of care reviewed with Saima Black Chest tube in place. No c/o SOB or discomfort.
--- NOTE | 2019-11-17 18:54 | NUR ---
Patient in room JUDY 349. I have received report from ELENO Zamudio and had the opportunity to ask questions and assume patient care. Addendum: 11/17/19 at 1855 by Shannan Pyle RN Amended: Links added.
[2019-11-17] MEDS: lisinopril 5mg tablet PO SCH (21:19)
[2019-11-18] VITALS: BP 114/65
[2019-11-18] MEDS: ceFAZolin/D5W- 1GM premix 50 ML IV SCH ×3 (00:49→18:03)
[2019-11-18] MEDS: oxyCODONE/APAP 10/325mg tablet PO PRN ×3 (01:56→20:01)
--- NOTE | 2019-11-18 07:05 | NUR ---
Patient in room JUDY 349. I have received report from Saima Black and had the opportunity to ask questions and assume patient care.
[2019-11-18 08:00] VITALS: BP 104/62
[2019-11-18] MEDS: K and/or MAG REPLACEMENT MC SCH ×2 (08:00→20:00)
[2019-11-18] MEDS: lactose-reduced food (Ensure High Protein) 237ml bottle PO SCH ×3 (08:00→18:03)
[2019-11-18] MEDS: furosemide 40mg tablet PO SCH (08:58)
[2019-11-18] MEDS: carVEDilol 3.125mg tablet PO SCH ×2 (08:58→20:00)
[2019-11-18] MEDS: lactobacillus rhamnosus 10,000 MMU CELLS/CAPSULE PO SCH ×2 (08:58→20:28)
[2019-11-18] MEDS: enoxaparin 40mg/0.4ml syringe SUBCUT SCH (08:58)
[2019-11-18 11:00] VITALS: BP 91/50
[2019-11-18 18:00] VITALS: BP 96/44
--- NOTE | 2019-11-18 18:22 | NUR ---
Patient in room JUDY 349. I have received report from ELENO Sanchez and had the opportunity to ask questions and assume patient care. Addendum: 11/18/19 at 1823 by Shannan Pyle RN Amended: Links added.
--- NOTE | 2019-11-18 18:56 | NUR ---
Problems reprioritized. Patient report given, questions answered & plan of care reviewed with Saima Black
[2019-11-18] MEDS: lisinopril 5mg tablet PO SCH (21:00)
[2019-11-19] VITALS: BP 102/58
[2019-11-19] MEDS: ceFAZolin/D5W- 1GM premix 50 ML IV SCH ×4 (00:22→23:49)
[2019-11-19] MEDS: oxyCODONE/APAP 10/325mg tablet PO PRN ×3 (04:17→19:10)
--- NOTE | 2019-11-19 06:07 | NUR ---
Problems reprioritized. Patient report given, questions answered & plan of care reviewed with steffen VOGT. Addendum: 11/19/19 at 0607 by Shannan Pyle RN Amended: Links added.
--- NOTE | 2019-11-19 06:35 | NUR ---
Patient in room [facility]. I have received report from Saima Retana RN and had the opportunity to ask questions and assume patient care.
[2019-11-19 08:00] VITALS: BP 114/54
[2019-11-19] MEDS: lactose-reduced food (Ensure High Protein) 237ml bottle PO SCH ×3 (08:00→18:35)
[2019-11-19] MEDS: K and/or MAG REPLACEMENT MC SCH ×2 (08:00→20:00)
[2019-11-19] MEDS: lactobacillus rhamnosus 10,000 MMU CELLS/CAPSULE PO SCH ×2 (08:18→19:10)
[2019-11-19] MEDS: carVEDilol 3.125mg tablet PO SCH ×2 (08:18→19:10)
[2019-11-19] MEDS: furosemide 40mg tablet PO SCH (08:18)
[2019-11-19] MEDS: enoxaparin 40mg/0.4ml syringe SUBCUT SCH (08:19)
[2019-11-19 10:13] LABS: BASOPHILS % (AUTO) 0.6 % (0-1); EOSINOPHILS # (AUTO) 0.2 X10'3 (0-0.9); EOSINOPHILS % (AUTO) 2.6 % (0-6); HEMATOCRIT 28.4 % (42.0-52.0); HEMOGLOBIN 9.5 g/dl (14.0-17.9); LYMPHOCYTES % (AUTO) 26.8 % (21-51); MEAN CORPUSCULAR HEMOGLOBIN 27.2 PG (27.0-31.0); MEAN CORPUSCULAR HGB CONC 33.4 g/dL (33.0-36.5); MEAN CORPUSCULAR VOLUME 81.3 FL (78-98); MONOCYTES % (AUTO) 13.1 % (2-12); NEUTROPHILS # (AUTO) 4.3 X10'3 (1.8-7.7); NEUTROPHILS % (AUTO) 56.9 % (42-75); PLATELET COUNT 615 X10'3 (140-440); RED BLOOD COUNT 3.49 X10'6 (4.70-6.10); WHITE BLOOD COUNT 7.6 X10'3 (4.5-11.0)
[2019-11-19 10:15] LABS: ALBUMIN 2.5 G/DL (3.4-5.0); ANION GAP 5 (8-16); BLOOD UREA NITROGEN 25 MG/DL (7-18); BUN/CREATININE RATIO 31.3 (5.4-32.0); CALCIUM 8.9 MG/DL (8.5-10.1); CHLORIDE 100 MMOL/L (99-107); GLUCOSE 178 MG/DL (70-104); POTASSIUM 3.8 MMOL/L (3.5-5.1); SODIUM 137 MMOL/L (135-145); TOTAL CARBON DIOXIDE 32.5 MMOL/L (24-32); eGFR > 90 ML/MIN
[2019-11-19 11:00] LABS: ANISOCYTOSIS 1+; HYPOCHROMASIA 1+; PLATELET ESTIMATE INCREASED; POLYCHROMASIA 1+
[2019-11-19 11:01] LABS: ELLIPTOCYTES 1+
[2019-11-19 12:00] VITALS: BP 103/60
--- NOTE | 2019-11-19 18:25 | NUR ---
Received report from ELENO Sanchez. Patient is awake and alert on room air, in no apparent distress. Call light and items of frequent use within reach. Will continue to monitor.
--- NOTE | 2019-11-19 18:28 | NUR ---
Problems reprioritized. Patient report given, questions answered & plan of care reviewed with Romulo Rausch.
[2019-11-19 19:10] VITALS: BP 108/61
[2019-11-19 20:00] VITALS: BP 99/52
[2019-11-19] MEDS: lisinopril 5mg tablet PO SCH (20:39)
[2019-11-20] VITALS: BP 115/59
--- NOTE | 2019-11-20 06:16 | NUR ---
Problems reprioritized. Patient report given, questions answered & plan of care reviewed with ELENO Brown.
--- NOTE | 2019-11-20 06:30 | NUR ---
Patient in room [facility]. I have received report from Elizabeth JOHANSEN and had the opportunity to ask questions and assume patient care.
[2019-11-20 07:21] VITALS: BP 134/78
[2019-11-20] MEDS: furosemide 40mg tablet PO SCH (07:31)
[2019-11-20] MEDS: lactobacillus rhamnosus 10,000 MMU CELLS/CAPSULE PO SCH ×2 (07:31→19:31)
[2019-11-20] MEDS: carVEDilol 3.125mg tablet PO SCH ×2 (07:31→19:31)
[2019-11-20] MEDS: oxyCODONE/APAP 10/325mg tablet PO PRN ×3 (07:31→19:34)
[2019-11-20] MEDS: enoxaparin 40mg/0.4ml syringe SUBCUT SCH (07:32)
[2019-11-20] MEDS: ceFAZolin/D5W- 1GM premix 50 ML IV SCH ×3 (07:32→23:57)
[2019-11-20] MEDS: K and/or MAG REPLACEMENT MC SCH ×2 (08:00→19:36)
[2019-11-20] MEDS: lactose-reduced food (Ensure High Protein) 237ml bottle PO SCH ×3 (08:00→18:19)
[2019-11-20 13:13] VITALS: BP 96/52
--- NOTE | 2019-11-20 18:28 | NUR ---
Problems reprioritized. Patient report given, questions answered & plan of care reviewed with Britton JOHANSEN.
[2019-11-20 18:30] VITALS: BP 103/68
[2019-11-20] MEDS: lisinopril 5mg tablet PO SCH (19:50)
[2019-11-21] VITALS: BP 102/60
[2019-11-21] MEDS: oxyCODONE/APAP 10/325mg tablet PO PRN ×3 (01:23→14:35)
--- NOTE | 2019-11-21 06:30 | NUR ---
Problems reprioritized. Patient report given, questions answered & plan of care reviewed with ESTEFANÍA. Addendum: 11/21/19 at 0630 by Gabriel Hercules RN Amended: Links added.
--- NOTE | 2019-11-21 06:50 | NUR ---
Patient in room [facility]. I have received report from Britton JOHANSEN and had the opportunity to ask questions and assume patient care.
[2019-11-21] MEDS: furosemide 40mg tablet PO SCH (07:52)
[2019-11-21] MEDS: carVEDilol 3.125mg tablet PO SCH ×2 (07:53→19:53)
[2019-11-21] MEDS: lactobacillus rhamnosus 10,000 MMU CELLS/CAPSULE PO SCH ×2 (07:54→19:53)
[2019-11-21] MEDS: enoxaparin 40mg/0.4ml syringe SUBCUT SCH (07:56)
[2019-11-21] MEDS: ceFAZolin/D5W- 1GM premix 50 ML IV SCH ×2 (07:58→17:00)
[2019-11-21 08:00] VITALS: BP 113/75
[2019-11-21] MEDS: K and/or MAG REPLACEMENT MC SCH ×2 (08:00→20:00)
[2019-11-21] MEDS: lactose-reduced food (Ensure High Protein) 237ml bottle PO SCH ×3 (08:35→18:16)
[2019-11-21 12:28] VITALS: BP 106/66
[2019-11-21 18:30] VITALS: BP 132/77
[2019-11-21 20:00] VITALS: BP 132/77
[2019-11-21] MEDS: lisinopril 5mg tablet PO SCH (21:00)
[2019-11-22] VITALS: BP 100/57
[2019-11-22] MEDS: ceFAZolin/D5W- 1GM premix 50 ML IV SCH ×3 (00:22→17:48)
[2019-11-22] MEDS: oxyCODONE/APAP 10/325mg tablet PO PRN ×3 (04:52→17:47)
--- NOTE | 2019-11-22 06:56 | NUR ---
Problems reprioritized. Patient report given, questions answered & plan of care reviewed with SIN. Addendum: 11/22/19 at 0657 by Gabriel Hercules RN Amended: Links added.
[2019-11-22 07:00] VITALS: BP 135/78
--- NOTE | 2019-11-22 07:23 | NUR ---
Patient in room [facility]. I have received report from Britton JOHANSEN and had the opportunity to ask questions and assume patient care.
[2019-11-22] MEDS: K and/or MAG REPLACEMENT MC SCH ×2 (08:00→20:00)
[2019-11-22] MEDS: lactose-reduced food (Ensure High Protein) 237ml bottle PO SCH ×3 (08:00→18:56)
[2019-11-22] MEDS: furosemide 40mg tablet PO SCH (09:06)
[2019-11-22] MEDS: lactobacillus rhamnosus 10,000 MMU CELLS/CAPSULE PO SCH ×2 (09:08→20:27)
[2019-11-22] MEDS: carVEDilol 3.125mg tablet PO SCH ×3 (09:09→21:57)
[2019-11-22] MEDS: enoxaparin 40mg/0.4ml syringe SUBCUT SCH (09:11)
[2019-11-22 11:00] VITALS: BP 98/64
--- NOTE | 2019-11-22 11:08 | NUR ---
Reassessment: Per MD notes chest tube is clamped. Pt continues with 75-100% PO intake of meals. Pt with fluctuating PO intake of ONS, documented at 50-100%. Pt likely meeting nutrient needs with good PO intake of ONS and meals. [facility] 11/19. No further nutrition intervention warranted at this time. Will continue to follow. Recommendations: 1) Continue mechanical soft heart healthy diet 2) Ensure High Protein TID; encourage PO intake 3) Bowel care PRN; monitor need for additional 4) Wt per rx Addendum: 11/22/19 at [address] Amended: Links added.
--- NOTE | 2019-11-22 18:30 | NUR ---
Patient in room [facility]. I have received report from ELENO Sanchez and had the opportunity to ask questions and assume patient care. Addendum: 11/22/19 at 1851 by Harvey Tripathi RN Amended: Links added.
--- NOTE | 2019-11-22 18:48 | NUR ---
Problems reprioritized. Patient report given, questions answered & plan of care reviewed with Lubna JOHANSEN.
[2019-11-22 19:49] VITALS: BP 127/76
[2019-11-22] MEDS: lisinopril 5mg tablet PO SCH (20:44)
[2019-11-22 21:55] VITALS: BP 99/58
[2019-11-23] VITALS: BP 112/66
[2019-11-23] MEDS: ceFAZolin/D5W- 1GM premix 50 ML IV SCH ×4 (00:16→23:34)
[2019-11-23] MEDS: oxyCODONE/APAP 10/325mg tablet PO PRN ×3 (00:16→14:57)
[2019-11-23 05:39] LABS: BASOPHILS # (AUTO) 0.1 X10'3 (0-0.2); BASOPHILS % (AUTO) 1.2 % (0-1); EOSINOPHILS # (AUTO) 0.3 X10'3 (0-0.9); HEMATOCRIT 29.3 % (42.0-52.0); HEMOGLOBIN 9.8 g/dl (14.0-17.9); LYMPHOCYTES # (AUTO) 1.9 X10'3 (1.1-4.8); LYMPHOCYTES % (AUTO) 29.5 % (21-51); MEAN CORPUSCULAR HEMOGLOBIN 26.8 PG (27.0-31.0); MEAN CORPUSCULAR HGB CONC 33.4 g/dL (33.0-36.5); MEAN CORPUSCULAR VOLUME 80.4 FL (78-98); MEAN PLATELET VOLUME 7.2 FL (7.4-10.4); MONOCYTES # (AUTO) 1.1 X10'3 (0-0.9); MONOCYTES % (AUTO) 16.4 % (2-12); NEUTROPHILS # (AUTO) 3.2 X10'3 (1.8-7.7); NEUTROPHILS % (AUTO) 48.9 % (42-75); PLATELET COUNT 549 X10'3 (140-440); RED BLOOD COUNT 3.65 X10'6 (4.70-6.10); RED CELL DISTRIBUTION WIDTH 17.8 % (11.5-14.5); WHITE BLOOD COUNT 6.6 X10'3 (4.5-11.0)
[2019-11-23 05:52] LABS: ALANINE AMINOTRANSFERASE 24 U/L (12-78); ALBUMIN 2.6 G/DL (3.4-5.0); ALBUMIN/GLOBULIN RATIO 0.6 (1.1-1.5); ALKALINE PHOSPHATASE 111 IU/L (46-116); ANION GAP 4 (8-16); ASPARTATE AMINO TRANSFERASE 34 U/L (10-37); BILIRUBIN,TOTAL 0.1 MG/DL (0.1-1.0); BLOOD UREA NITROGEN 21 MG/DL (7-18); BUN/CREATININE RATIO 26.3 (5.4-32.0); CALCIUM 8.9 MG/DL (8.5-10.1); CHLORIDE 101 MMOL/L (99-107); GLUCOSE 80 MG/DL (70-104); POTASSIUM 4.6 MMOL/L (3.5-5.1); SODIUM 139 MMOL/L (135-145); TOTAL CARBON DIOXIDE 34.4 MMOL/L (24-32); TOTAL PROTEIN 7.3 G/DL (6.4-8.2); eGFR > 90 ML/MIN
--- NOTE | 2019-11-23 06:08 | NUR ---
Problems reprioritized. Patient report given, questions answered & plan of care reviewed with ELENO Cisse. Addendum: 11/23/19 at 0609 by Harvey Tripathi RN Amended: Links added.
[2019-11-23] MEDS: K and/or MAG REPLACEMENT MC SCH ×2 (08:00→19:55)
[2019-11-23 08:05] VITALS: BP 105/53
[2019-11-23] MEDS: lactobacillus rhamnosus 10,000 MMU CELLS/CAPSULE PO SCH ×2 (08:07→19:48)
[2019-11-23] MEDS: carVEDilol 3.125mg tablet PO SCH ×2 (08:08→19:55)
[2019-11-23] MEDS: enoxaparin 40mg/0.4ml syringe SUBCUT SCH (08:08)
[2019-11-23] MEDS: furosemide 40mg tablet PO SCH (08:08)
[2019-11-23] MEDS: lactose-reduced food (Ensure High Protein) 237ml bottle PO SCH ×3 (08:09→18:00)
[2019-11-23 09:54] LABS: TOTAL CELLS COUNTED 100
[2019-11-23 09:55] LABS: ANISOCYTOSIS 1+; LARGE PLATELETS FEW; PLATELET ESTIMATE INCREASED
[2019-11-23 12:03] VITALS: BP 102/57
[2019-11-23 18:00] VITALS: BP 93/53
--- NOTE | 2019-11-23 18:18 | NUR ---
Problems reprioritized. Patient report given, questions answered & plan of care reviewed with ELENO Estevez.
--- NOTE | 2019-11-23 18:19 | NUR ---
Patient in room [facility]. I have received report from Nubia JOHANSEN and had the opportunity to ask questions and assume patient care.
[2019-11-23 19:56] VITALS: BP 90/55
[2019-11-23] MEDS: lisinopril 5mg tablet PO SCH (21:00)
[2019-11-24 00:18] VITALS: BP 116/71
--- NOTE | 2019-11-24 06:14 | NUR ---
Problems reprioritized. Patient report given, questions answered & plan of care reviewed with Nubia JOHANSEN.
--- NOTE | 2019-11-24 06:15 | NUR ---
Patient in room [facility]Y 349. I have received report from ELENO Estevez and had the opportunity to ask questions and assume patient care.
[2019-11-24 07:34] VITALS: BP 109/61
[2019-11-24] MEDS: enoxaparin 40mg/0.4ml syringe SUBCUT SCH (07:43)
[2019-11-24] MEDS: lactobacillus rhamnosus 10,000 MMU CELLS/CAPSULE PO SCH (07:43)
[2019-11-24] MEDS: carVEDilol 3.125mg tablet PO SCH (07:43)
[2019-11-24] MEDS: ceFAZolin/D5W- 1GM premix 50 ML IV SCH (07:43)
[2019-11-24] MEDS: furosemide 40mg tablet PO SCH (07:44)
[2019-11-24] MEDS: lactose-reduced food (Ensure High Protein) 237ml bottle PO SCH ×2 (07:44→13:43)
[2019-11-24] MEDS: K and/or MAG REPLACEMENT MC SCH (08:00)
[2019-11-24 12:03] VITALS: BP 116/62
[2019-11-24] MEDS: oxyCODONE/APAP 10/325mg tablet PO PRN (14:10)
[2019-11-24] MEDS ORDERED: CEPH250T PO (15:59)
[2019-11-24] MEDS ORDERED: HYDR-4383 PO (16:24)
--- NOTE | 2019-11-24 17:00 | NUR ---
Patient educated on Discharge instructions, new medications and continued medications with cousin Susan, who will be assisting him in his care short term, at bedside. Patient states understanding regarding when to take his antibiotic, PRN pain medications, and understands he is to follow up with his primary care physician and with Dr. Gandhi in his office in one week. Patient states he will make appointment. Patient and patient's family member at bedside state they understand and agree with discharge instructions and have no further questions.
--- NOTE | 2019-11-24 17:00 | NUR ---
All belongings sent with patient upon discharge.
== END 2019-11-24 16:42 | disposition home or self-care (01) | DRG 121 ==
LOC: ER 16:42 → ED HOLD 22:36 → UNDOADMIN 22:52 → ED HOLD 22:52 → EDBEDREQ 23:50 → SUR 3N 10-31 00:41 → ED HOLD 10-31 00:41 → ICU 2S 11-07 16:00 → SUR 3N 11-09 17:48
PROVIDERS: ADMIT Internal Medicine; ATTEND Internal Medicine
PROC: 4A02XM4 Measurement of Cardiac Total Activity, External Approach (ICD-10-PCS; 2019-11-06)
PROC: 3E033HZ Introduction of Radioactive Substance into Peripheral Vein, Percutaneous Approach (ICD-10-PCS; 2019-11-06)
PROC: 0B5N0ZZ Destruction of Right Pleura, Open Approach (ICD-10-PCS; 2019-11-07)
PROC: 0BNC0ZZ Release Right Upper Lung Lobe, Open Approach (ICD-10-PCS; 2019-11-07)
PROC: 0BND0ZZ Release Right Middle Lung Lobe, Open Approach (ICD-10-PCS; 2019-11-07)
PROC: 0W9930Z Drainage of Right Pleural Cavity with Drainage Device, Percutaneous Approach (ICD-10-PCS; 2019-11-07)
PROC: 0BNF0ZZ Release Right Lower Lung Lobe, Open Approach (ICD-10-PCS; principal; 2019-11-07 14:36)
DX: J93.9 Pneumothorax, unspecified (principal); J86.9 Pyothorax without fistula; I50.22 Chronic systolic (congestive) heart failure; I50.9 Heart failure, unspecified; J94.8 Other specified pleural conditions; R06.02 Shortness of breath; D64.9 Anemia, unspecified; J93.82 Other air leak
CPT/HCPCS: 32557; 36415; 36600; 71045; 71046; 71250; 71260; 78452; 80048; 80053; 82803; 82948; 83605; 83735; 84478; 84484; 85018; 85025; 85610; 85730; 86885; 86900; 86901; 86920; 87040; 87070; 87075; 87081; 87102; 93005; 93017; 93306; 94002; 94003; 94668; 94760; 97110; 97116; 97162; 97164; 97530; A4215; A4618; A6258; A6449; A7000; A7048; A9500; C1751; C1758; C9250; G0378; J0690; J1580; J1650; J2001; J2250; J2270; J2704; J2785; J2795; J3010; J3490; J7030; J7120; Q2037; Q9967